=== PATIENT | female | born 1950 | race Caucasian/White ===

== ENCOUNTER 2020-01-06 23:01 | Emergency (ER) | payer MEDICARE, OTHER ==
[~2020-01-06] VITALS: Ht 172.7 cm; Wt 110.7 kg
[2020-01-06] MEDS ORDERED: Ropinirole HCl2 MG PO (23:17)
[2020-01-06] MEDS ORDERED: LEVEMIR100 UNIT/1 SC (23:17)
[2020-01-06] MEDS ORDERED: DULO60 PO (23:17)
[2020-01-06] MEDS ORDERED: METO50 PO (23:18)
[2020-01-06] MEDS ORDERED: METF500C PO (23:18)
[2020-01-06] MEDS ORDERED: LEVEMIR FL100 UNIT/2 SC (23:23)
== END 2020-01-07 | disposition home or self-care (01) ==
LOC: ER 23:01
DX: E11.9 Type 2 diabetes mellitus without complications (principal); Z76.0 Encounter for issue of repeat prescription; F17.200 Nicotine dependence, unspecified, uncomplicated
CPT/HCPCS: 82947; 99281

== ENCOUNTER 2020-02-18 02:32 | Emergency (ER) | payer MEDICARE, OTHER ==
[~2020-02-18] VITALS: Ht 172.7 cm; Wt 158.8 kg
[~2020-02-18 02:32] MED LIST: DULO60 PO; LEVEMIR FL100 UNIT/2 SC; LEVEMIR100 UNIT/1 SC; METF500C PO; METO50 PO; Ropinirole HCl2 MG PO
[2020-02-18 03:18] LABS: Source, Urine Catheter
[2020-02-18 03:22] LABS: Appearance, Urine Clear (Clear); Bilirubin, Urine Neg (Neg); Blood, Urine 4+ (Neg); Color, Urine Yellow (P-Yellow); Glucose Qualitative, Urine Neg (Neg); Ketones, Urine Neg (Neg); Leukocyte Esterase, Urine 1+ (Neg); Nitrite, Urine Neg (Neg); Protein, Urine 2+ (Neg); Urobilinogen, Urine 2+ (Normal)
[2020-02-18 03:23] LABS: BASOPHILS ABSOLUTE AUTO 0.03 K/mm3 (0.00-0.23); BASOPHILS PERCENT AUTO 0 % (0-2); EOSINOPHILS ABSOLUTE AUTO 0.04 K/mm3 (0.00-0.68); EOSINOPHILS PERCENT AUTO 0 % (0-6); Hematocrit 45.1 % (33.0-51.0); Hemoglobin 15.5 g/dL (11.5-16.0); IMMATURE GRAN ABSOLUTE AUTO 0.07 K/mm3 (0.00-0.10); IMMATURE GRAN PERCENT AUTO 1 % (0-1); LYMPHOCYTES ABSOLUTE AUTO 0.48 K/mm3 (0.84-5.20); LYMPHOCYTES PERCENT AUTO 5 % (21-46); MONOCYTES ABSOLUTE AUTO 0.52 K/mm3 (0.16-1.47); MONOCYTES PERCENT AUTO 5 % (4-13); Mean Corpuscular HGB 30.7 pg (26.0-34.0); Mean Corpuscular HGB Conc 34.4 g/dL (31.5-36.5); Mean Corpuscular Volume 89 fL (80-100); Mean Platelet Volume 10.3 fL (9.1-12.4); NEUTROPHILS ABSOLUTE AUTO 8.71 K/mm3 (1.96-9.15); NEUTROPHILS PERCENT AUTO 88 % (41-73); Platelet Count 91 K/mm3 (150-400); RDW Coefficient Variation 13.2 % (11.7-14.2); RDW Standard Deviation 42.9 fL (35.1-46.3); Red Blood Cell Count 5.05 M/mm3 (3.80-5.20); White Blood Cell Count 9.85 K/mm3 (4.00-11.30)
[2020-02-18 03:44] LABS: White Blood Cells, Urine 0-2 /hpf (0-5)
[2020-02-18 03:45] LABS: Bacteria Few /hpf; Squamous Epithelial Cells Few /hpf (Few)
[2020-02-18 03:48] LABS: Alanine Aminotransfer (ALT/SGP 34 U/L (12-78); Albumin/Globulin Ratio 0.6 (0.8-1.8); Alk Phos 108 U/L (50-136); Anion Gap 7 mmol/L (6-16); Aspartate Aminotrans (AST/SGOT 59 U/L (12-37); Bilirubin, Total 3.3 mg/dL (0.1-1.0); Blood Urea Nitrogen 15 mg/dL (8-24); Bun/Creatinine Ratio 30.1 (12.0-20.0); CO2, Blood 24 mmol/L (21-32); Calcium, Blood 8.7 mg/dL (8.5-10.1); Chloride, Blood 102 mmol/L (98-108); Glomerular Filtration Rate >60 (60-); Glucose, Blood 157 mg/dL (70-99); Magnesium, Blood 1.4 mg/dL (1.6-2.4); Potassium, Blood 3.9 mmol/L (3.5-5.5); Sodium, Blood 133 mmol/L (136-145); Troponin I <0.015 ng/mL (0.000-0.040)
== END 2020-02-18 06:29 | disposition home or self-care (01) ==
LOC: ER 02:32
PROVIDERS: Emergency Medicine
DX: R50.9 Fever, unspecified (principal); M54.5 Low back pain; E11.9 Type 2 diabetes mellitus without complications; I10 Essential (primary) hypertension; E83.42 Hypomagnesemia; F41.9 Anxiety disorder, unspecified; E86.0 Dehydration; Z79.899 Other long term (current) drug therapy; Z79.4 Long term (current) use of insulin; Z87.891 Personal history of nicotine dependence; Z20.828 Contact with and (suspected) exposure to other viral communicable diseases
CPT/HCPCS: 36415; 71045; 80053; 81001; 82947; 83605; 83690; 83735; 84145; 84484; 85025; 87040; 87077; 87086; 87147; 87186; 93005; 93010; 96361-59; 96365-59; 96375-59; 99284-25; G0480; J1170; J2405; J3475; J7030; P9612; U0003

== ENCOUNTER 2020-02-18 12:04 | Inpatient (IN) | payer MEDICARE, OTHER ==
[~2020-02-18] VITALS: Ht 172.7 cm; Wt 149.1 kg
[2020-02-18 12:54] LABS: Base Excess Venous -8.3 mmol/L; Bicarbonate Venous 19.3 mmol/L (24.0-30.0); PCO2 Venous 26.7 mmHg (38-42); PO2 Venous 138 mmHg (38-42)
[2020-02-18 12:57] LABS: BASOPHILS ABSOLUTE AUTO 0.06 K/mm3 (0.00-0.23); BASOPHILS PERCENT AUTO 0 % (0-2); EOSINOPHILS PERCENT AUTO 0 % (0-6); Hematocrit 45.9 % (33.0-51.0); Hemoglobin 15.5 g/dL (11.5-16.0); IMMATURE GRAN ABSOLUTE AUTO 0.22 K/mm3 (0.00-0.10); IMMATURE GRAN PERCENT AUTO 1 % (0-1); LYMPHOCYTES ABSOLUTE AUTO 0.46 K/mm3 (0.84-5.20); LYMPHOCYTES PERCENT AUTO 3 % (21-46); MONOCYTES ABSOLUTE AUTO 0.56 K/mm3 (0.16-1.47); MONOCYTES PERCENT AUTO 3 % (4-13); Mean Corpuscular HGB 30.5 pg (26.0-34.0); Mean Corpuscular HGB Conc 33.8 g/dL (31.5-36.5); Mean Corpuscular Volume 90 fL (80-100); Mean Platelet Volume 10.2 fL (9.1-12.4); NEUTROPHILS ABSOLUTE AUTO 15.18 K/mm3 (1.96-9.15); NEUTROPHILS PERCENT AUTO 92 % (41-73); Platelet Count 78 K/mm3 (150-400); RDW Coefficient Variation 13.4 % (11.7-14.2); RDW Standard Deviation 44.9 fL (35.1-46.3); Red Blood Cell Count 5.08 M/mm3 (3.80-5.20); White Blood Cell Count 16.48 K/mm3 (4.00-11.30)
[2020-02-18 13:15] LABS: Alanine Aminotransfer (ALT/SGP 37 U/L (12-78); Albumin, Blood 3.2 g/dL (3.4-5.0); Albumin/Globulin Ratio 0.7 (0.8-1.8); Alk Phos 106 U/L (50-136); Anion Gap 13 mmol/L (6-16); Aspartate Aminotrans (AST/SGOT 79 U/L (12-37); Bilirubin, Total 5.5 mg/dL (0.1-1.0); Blood Urea Nitrogen 20 mg/dL (8-24); Bun/Creatinine Ratio 34.4 (12.0-20.0); CO2, Blood 17 mmol/L (21-32); Calcium, Blood 8.9 mg/dL (8.5-10.1); Chloride, Blood 101 mmol/L (98-108); Creatinine, Blood 0.58 mg/dL (0.40-1.00); Globulin, Blood 4.8 g/dL (2.2-4.0); Glomerular Filtration Rate >60 (60-); Glucose, Blood 284 mg/dL (70-99); Potassium, Blood 4.2 mmol/L (3.5-5.5); Sodium, Blood 131 mmol/L (136-145)
[2020-02-18 13:27] LABS: U Amphetamine Screen Not Detected; U Cannabinoids Screen DETECTED
[2020-02-18 13:28] LABS: U Barbituate Screen Not Detected; U Benzodiazapine Screen Not Detected; U Buprenorphine Screen Not Detected; U Cocaine Screen Not Detected; U Methadone Screen Not Detected; U Methamphetamine Screen Not Detected; U Opiates Screen Not Detected; U Oxycodone Screen Not Detected; U Phencyclidine Screen Not Detected; U Propoxyphene Screen Not Detected
[2020-02-18 14:42] LABS: Creatine Kinase MB 5.2 ng/mL (0.0-3.6); Creatine Kinase MB Index 1.3 (0.0-4.0)
[2020-02-18 14:43] LABS: Free Thyroxine 1.26 ng/dL (0.70-1.60); Thyroid Stimulating Hormone 2.6 uIU/mL (0.360-4.800)
[2020-02-18 14:54] LABS: Acetaminophen, Random <2.0 ug/mL (10.0-30.0); Salicylate <1.7 mg/dL (2.8-20.0)
[2020-02-18 15:57] LABS: Adenovirus Not Detected (NOT DETECT); Bordetella pertussis Not Detected (NOT DETECT); Coronavirus 229E Not Detected (NOT DETECT); Coronavirus HKU1 Not Detected (NOT DETECT); Coronavirus NL63 Not Detected (NOT DETECT); Coronavirus OC43 Not Detected (NOT DETECT); Human Metapneumovirus Not Detected (NOT DETECT); Human Rhinovirus/Enterovirus Not Detected (NOT DETECT); Influenza A/2009-H1 Not Detected (NOT DETECT); Influenza A/H1 Not Detected (NOT DETECT); Influenza A/H3 Not Detected (NOT DETECT); Influenza B Not Detected (NOT DETECT); Parainfluenza Virus 1 Not Detected (NOT DETECT); Parainfluenza Virus 2 Not Detected (NOT DETECT); Parainfluenza Virus 3 Not Detected (NOT DETECT); Parainfluenza Virus 4 Not Detected (NOT DETECT); Respiratory Syncytial Virus Not Detected (NOT DETECT); SARS-Cov-2 (COVID-19), BioFire Not Detected (NOT DETECT)
[2020-02-18 15:58] LABS: Chlamydophila pneumoniae Not Detected (NOT DETECT); Mycoplasma pneumoniae Not Detected (NOT DETECT)
--- NOTE | 2020-02-18 18:13 | NUR ---
Assumed care of pt upon arrival from emergency department to ICU 11 at 1623. Pt sedated with propofol at 30 mcg/kg/min, dosing weight 100 kg. On arrival to unit, dosing weight changed to 124 kg as this is the pt's actual weight. Pt responsive to painful stimulus. 8.[address], 24 cm KATHLEEN. Connected to ventilator ACVC 16/375/5/60%. SpO2 90% or greater. Lungs clear, dim in bases. No sputum aspirated from ETT. ST per monitor. BP stable. Temp connors in place, draining orange urine. 2 peripheral IVs in left arm. Dressing removed and tegaderm CHG placed as previous dressings were having trouble adhering due to pt's diaphoresis. Orogastric tube in place, connected to low intermittent suction. Bilious drainage from OG tube. Pt in bilat wrist restraints to prevent self-extubation. Pt's spouse in to see pt but stayed in room only long enough to talk to Dr Alarcon. Dr Webster notified of consult. Provider states he will be in to see pt shortly. States to continue with propofol for sedation.
[2020-02-18 20:40] LABS: PCO2 Arterial 34.7 mmHg (35-45); PO2 Arterial 73.4 mmHg (80-100)
--- NOTE | 2020-02-18 21:39 | NUR ---
ASSUMED CARE OF PT, REPORT RCV'D FROM JASPER MICHEL. PT INTUBATED AND SEDATED. VENT SETTINS AC 16/375/5/45%. PROPOFOL @40 MCG/KG/MIN. PT DISPLAYS FACIAL GRIMACING AND WITHDRAWAL FROM PAINFUL STIMULI. PT FEBRILE 100.7, ALL OTHER VSS. SEE FULL SHIFT ASSESSMENT.
[2020-02-18 22:16] LABS: Source, Urine Catheter
[2020-02-18 22:19] LABS: Bilirubin, Urine 2+ (Neg); Blood, Urine 5+ (Neg); Glucose Qualitative, Urine 1+ (Neg); Ketones, Urine 1+ (Neg); Leukocyte Esterase, Urine 1+ (Neg); Nitrite, Urine Pos (Neg); Protein, Urine 3+ (Neg); Urobilinogen, Urine 3+ (Normal)
[2020-02-18 22:20] LABS: Appearance, Urine Cloudy (Clear); Color, Urine Amber (P-Yellow)
[2020-02-18 22:25] LABS: Amorphous Mod (0-Heavy); Bacteria Mod /hpf; Red Blood Cells, Urine TNTC /hpf (0-2); Squamous Epithelial Cells Few /hpf (Few)
--- NOTE | 2020-02-19 00:05 | NUR ---
PT IS HAVING INTERMITTENT MOTTLING OF HANDS AND FEET BILATERALLY. DIFFICULT TO OBTAIN ACCURATE 02 SATURATION READING.
[2020-02-19 03:18] LABS: BASOPHILS ABSOLUTE AUTO 0.02 K/mm3 (0.00-0.23); BASOPHILS PERCENT AUTO 0 % (0-2); EOSINOPHILS PERCENT AUTO 0 % (0-6); Hematocrit 40.6 % (33.0-51.0); Hemoglobin 13.4 g/dL (11.5-16.0); IMMATURE GRAN ABSOLUTE AUTO 0.07 K/mm3 (0.00-0.10); IMMATURE GRAN PERCENT AUTO 1 % (0-1); LYMPHOCYTES ABSOLUTE AUTO 0.41 K/mm3 (0.84-5.20); LYMPHOCYTES PERCENT AUTO 4 % (21-46); MONOCYTES ABSOLUTE AUTO 0.73 K/mm3 (0.16-1.47); MONOCYTES PERCENT AUTO 7 % (4-13); Mean Corpuscular HGB 30.5 pg (26.0-34.0); Mean Corpuscular Volume 93 fL (80-100); NEUTROPHILS ABSOLUTE AUTO 9.23 K/mm3 (1.96-9.15); NEUTROPHILS PERCENT AUTO 88 % (41-73); Platelet Count 71 K/mm3 (150-400); Red Blood Cell Count 4.39 M/mm3 (3.80-5.20); White Blood Cell Count 10.46 K/mm3 (4.00-11.30)
[2020-02-19 03:36] LABS: Alanine Aminotransfer (ALT/SGP 29 U/L (12-78); Albumin, Blood 3.4 g/dL (3.4-5.0); Albumin/Globulin Ratio 0.9 (0.8-1.8); Alk Phos 70 U/L (50-136); Anion Gap 8 mmol/L (6-16); Aspartate Aminotrans (AST/SGOT 73 U/L (12-37); Bilirubin, Direct 2.8 mg/dL (0.0-0.3); Bilirubin, Indirect 1.9 mg/dL (0.1-0.7); Bilirubin, Total 4.7 mg/dL (0.1-1.0); Blood Urea Nitrogen 27 mg/dL (8-24); Bun/Creatinine Ratio 28.8 (12.0-20.0); CO2, Blood 24 mmol/L (21-32); Calcium, Blood 8.4 mg/dL (8.5-10.1); Chloride, Blood 103 mmol/L (98-108); Creatinine, Blood 0.94 mg/dL (0.40-1.00); Globulin, Blood 3.6 g/dL (2.2-4.0); Glomerular Filtration Rate >60 (60-); Glucose, Blood 188 mg/dL (70-99); Phosphorus, Blood 2.6 mg/dL (2.5-4.9); Potassium, Blood 3.7 mmol/L (3.5-5.5); Sodium, Blood 135 mmol/L (136-145)
--- NOTE | 2020-02-19 05:22 | NUR ---
CALL TO DR. HARMAN REGARDING PT BLE MOTTLING AND COLD EXTREMETIES AND REQUEST TO COME ASSESS PATIENT. PT IS FEBRILE WITH CURRENT TEMP 101.4, ICE PACKED IN GROIN AND BEHIND NECK. PT RIGHT IBRAHIM REDDENED AND WARM TO THE TOUCH. DR. HARMAN TO ORDER TYLENOL FOR FEVER AND WILL SEE PATIENT WHEN AVAILABLE.
--- NOTE | 2020-02-19 05:44 | NUR ---
DR. HARMAN IN TO SEE PT. PT CURRENTLY DOES NOT HAVE MOTTLED FEET/HANDS, SHOWED DR. HARMAN PICTS TAKEN WHILE FEET WERE MOTTLED. PER DR. PT HAS GOOD PULSES BILATERALLY, SUGGESTS COVERING FEET WITH BLANKET TO KEEP WARM AND TREAT FEVER WITH TYLENOL. NO NEED FOR VASCULAR CONSULT AT THIS TIME.
--- NOTE | 2020-02-19 06:00 | NUR ---
PT REMAINS INTUBATED AND SEDATED. VENT SETTINGS AC 16/375/5/35%, PROPOFOL @45 MCG/KG/MIN. CURRENT TEMP 100.0, ICE PACKS REMAIN TO GROIN, NECK. 200 ML DARK GREEN OUTPUT FROM OGT. TEMP MELENDEZ REMAINS PATENT AND DRAINING TO GRAVITY, 450 ML DARK BROWN URINARY OUTPUT. PT CONTINUES TO HAVE EXTREME INTERMITTENT MOTTLING OF FEET, COLD EXTREMITIES UPPER/LOWER BILATERALLY. WILL REPORT TO DAYSINFT NURSE
--- NOTE | 2020-02-19 06:15 | NUR ---
PT CURRENTLY IN AFIB WITH RVR, HR UP TO 165. CALL TO DR. CROW, ORDER FOR 5MG/1ML LOADING DOSE DILTIAZEM AND DILTIAZEM GTT.
--- NOTE | 2020-02-19 08:30 | NUR ---
ASSUMED CARE: REPORT RECEIVED FROM PHUONG Winkler RN. ASSUMED CARE OF THIS PT AT APPROX 0700. ON ASSESSMENT, THE PT IS SEDATED W/ PROPOFOL & INTUBATED. SHE WITHDRAWS ALL EXTREMITIES & GRIMACES TO PAINFUL STIMULUS. PT IS STILL HAVING INTERMITTENT PERIODS OF DARK PUPLE COLORATION & MOTTLING TO BILAT FEET. HANDS ALSO BECOME VERY COLD TO THE TOUCH AT THESE TIMES. PT CONTINUES HAVING PULSES TO THE AFFECTED EXTREMITIES. ALL PROVIDERS AWARE. DR PADILLA & DR MCCORMICK, RESIDENT, HAVE BEEN AT BEDSIDE THIS AM. NO CHANGES AT THIS TIME, CONTINUE POC PER [employer]. WILL CONTINUE TO MONITOR & UPDATE NEEDED.
--- NOTE | 2020-02-19 08:50 | NUR ---
DR CROW: PROVIDER AT BEDSIDE TO EVAL PT. DISCUSSED PT's INTERMITTENT MOTTLING & COLD EXTREMITIES & NEW ONSET AFIB. HE STS HE WILL BE PLACING ORDERS FOR METOPROLOL PT & MORE ALBUMIN WELL. ONCE PT's HR IS IMPROVED, ECHO IS TO BE COMPLETED.
--- NOTE | 2020-02-19 14:26 | NUR ---
Echocardiogram completed.
--- NOTE | 2020-02-19 18:22 | NUR ---
SHIFT SUMMARY: PT REMAINS SEDATED W/ PROPOFOL & INTUBATED. BRIEF SEDATION VACATION COMPLETED THIS EVENING FROM APPROX [id number]. PT IS MOVING EXTREMITIES x4 SPONTANEOUSLY & WITHDRAWING FROM PAINFUL STIMULI, GRIMACES W/ CARE PROVIDED. PT SPONTANEOUSLY CONVERTED FROM AFIB TO SR AT 1645 W/ HR 50s. PT HYPOTENSIVE SHORTLY AFTER THIS CONVERSION, BP RESPONDED WELL TO SEDATION VACATION & OVERALL DECREASE IN SEDATION ONCE RESUMED. PT's HR NOW IN 60s & BP STABLE - SEE VS. OGT CONTINUES TO LIS W/ MOD AMNTS OF GREEN BILE OUT. TEMP MELENDEZ PATENT/ DRAINING & PT's TEMP OVERALL WNL THIS SHIFT. SKIN CONDITION UNCHANGED & PT HAS BEEN REPOSITIONED Q2H TO MAINTAIN SKIN INTEGRITY. WILL CONTINUE TO MONITOR & REPORT OFF TO ONCOMING RN.
--- NOTE | 2020-02-19 21:38 | NUR ---
ASSUMED CARE OF PT, REPORT RCV'D FROM JASPER CORCORAN. PT INTUBATED AND SEDATED. VENT SETTINGS AC 16/375/5/30%. PROPOFOL @ 40 MCG/KG/MIN. OGT TO LIS WITH GREEN/BROWN OUTPUT. MELNEDEZ CATH PATENT AND DRAINING DARK DENISSE URINE. BILATERAL FEET REMAIN INTERMITTENTLY MOTTLED, PULSE STRONG. DILTIAZEM GTT REMAINS OFF AND PT IN NSR. SEE FULL SHIFT ASSESSMENT.
[2020-02-20 03:33] LABS: BASOPHILS ABSOLUTE AUTO 0.02 K/mm3 (0.00-0.23); BASOPHILS PERCENT AUTO 0 % (0-2); EOSINOPHILS ABSOLUTE AUTO 0.05 K/mm3 (0.00-0.68); EOSINOPHILS PERCENT AUTO 1 % (0-6); Hematocrit 40.3 % (33.0-51.0); Hemoglobin 13.5 g/dL (11.5-16.0); IMMATURE GRAN ABSOLUTE AUTO 0.04 K/mm3 (0.00-0.10); IMMATURE GRAN PERCENT AUTO 1 % (0-1); LYMPHOCYTES ABSOLUTE AUTO 0.45 K/mm3 (0.84-5.20); LYMPHOCYTES PERCENT AUTO 6 % (21-46); MONOCYTES ABSOLUTE AUTO 0.71 K/mm3 (0.16-1.47); MONOCYTES PERCENT AUTO 10 % (4-13); Mean Corpuscular HGB 30.7 pg (26.0-34.0); Mean Corpuscular HGB Conc 33.5 g/dL (31.5-36.5); Mean Corpuscular Volume 92 fL (80-100); Mean Platelet Volume 10.6 fL (9.1-12.4); NEUTROPHILS ABSOLUTE AUTO 5.97 K/mm3 (1.96-9.15); NEUTROPHILS PERCENT AUTO 82 % (41-73); Platelet Count 72 K/mm3 (150-400); RDW Coefficient Variation 14.4 % (11.7-14.2); RDW Standard Deviation 48.6 fL (35.1-46.3); White Blood Cell Count 7.24 K/mm3 (4.00-11.30)
[2020-02-20 03:46] LABS: Albumin, Blood 3.1 g/dL (3.4-5.0); Anion Gap 10 mmol/L (6-16); Blood Urea Nitrogen 36 mg/dL (8-24); Bun/Creatinine Ratio 35.6 (12.0-20.0); CO2, Blood 19 mmol/L (21-32); Calcium, Blood 7.8 mg/dL (8.5-10.1); Chloride, Blood 106 mmol/L (98-108); Creatinine, Blood 1.01 mg/dL (0.40-1.00); Glomerular Filtration Rate 58 (60-); Glucose, Blood 191 mg/dL (70-99); Phosphorus, Blood 3.2 mg/dL (2.5-4.9); Sodium, Blood 135 mmol/L (136-145)
--- NOTE | 2020-02-20 05:53 | NUR ---
SHIFT SUMMARY PT REMAINS INTUBATED AND SEDATED. VENT AND SEDATION SETTING REMAIN UNCHANGED. PT STABLE OVERNIGHT WITH NO ACUTE CHANGES. PT FAILED SBT/SEDATION VACATION THIS AM PT FAILED TO FOLLOW COMMANDS AND BECAME HYPERTENSIVE. WILL REPORT TO DAYSHIFT NURSE.
--- NOTE | 2020-02-20 09:04 | NUR ---
CARE ASSUMED 0700 PT INTUBATED AND SEDATED. AC 16/375/5/25%. PROPOFOL @ 40 MCG'S, RESPONDING TO PAINFUL STIMULI WITH GRIMACING. MAINTAINS FLUIDS AT 125 ML/HR. OG TUBE TO LIS WITH GREEN BILE. PT IN NSR WITH OCCASIONAL PAC'S. VSS. DR. CROW AND DR. MCCORMICK IN TO SEE PT. PROVIDERS MADE AWARE OF PTS LACTIC ACID @ 2.4. ORDERS FOR CHANGING ANTIBIOTICS, CHECKING AMMONIA LEVEL, AND DIETARY CONSULTED FOR STARTED TUBE FEEDS. PROPOFOL DECREASED TO 35 MCG'S FOR POSSIBLE SEDATION VACTION. PTS DAUGHTER CALLED BUT SHE IS NOT LISTED ON CONSENT RELEASE FORM THEREFORE, COULD NOT PROVIDE ANY INFORMATION. DAUGHTER STATES THAT HER STEP-FATHER WILL BE ADDING HER TO THE FORM SOON.
--- NOTE | 2020-02-20 14:15 | NUR ---
UPDATE PROPOFOL STOPPED AND PRECEDEX @ 0.3 MCG/KG/HR. AC SETTINGS CHANGED TO PS 7/5, 25%. PT OCCASIONALLY TRIES TO SIT-UP IN BED, MOSTLY SLEEPING, AND STILL NOT ABLE TO FOLLOW COMMANDS. PLAN TO CONTINUE SEDATION VACATION TOLERATED.
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
--- NOTE | 2020-02-20 18:25 | NUR ---
SHIFT SUMMARY SEE PREVIOUS NOTES. PT CONTINUED ON PS 7/5,25%, TOLERATING WELL SPO2 94%. SEDATION VACATION DONE FOR TWO HOURS BUT PT DID NOT TOLERATE WELL. PT WAS NOT A/O OR FOLLOWING COMMANDS. HAD INCREASED GRIMACING/AGITATION. PROPOFOL STARTED AT 20MCG/KG/MIN AND PRECEDEX AT 0.2 MCG/KG/HR. TOLERATING WELL. VSS. NSR. PT WAS DIAPHORETIC FOR TWO HOURS WHEN TEMP ELEVATED TO 99.3 BUT HAS IMPROVED IN DIAPHORESIS AND TEMP DECREASED TO 97.8. MELENDEZ CATH IN PLACE WITH DARK CLOUDY URINE WITH SEDIMENT. OG TUBE WITH PIVOT 1.5 TUBE FEED, RESIDUAL OF 60 ML AND GOAL OF 35 ML/HR MET. PER DR. CROW PLAN TO SWITCH PT BACK TO AC MODE DURING SHIFT CHANGE. WILL REPORT TO ONCOMING SHIFT.
--- NOTE | 2020-02-20 20:17 | NUR ---
ASSUMED CARE OF PT, REPORT RCV'D FROM JASPER BUSTAMANTE AND JASPER MARINO. PT INTUBATED AND SEDATED. PT SWITCHED FROM PS BACK TO AC PER PHYSICIAN ORDER, PT BEGINS "BREATH STACKING", RT TO ROOM, DISCUSSION WITH DR. CROW TO CONTINUE PT ON PS LONG SHE TOLERATED IT. PT UNRESPONSIVE TO PAIN (STERNAL RUB) AT THIS TIME. DECREASED PROPFOL FROM 20 MCG/KG/MIN TO 15 MCG/KG/MIN, WILL CONTINUE TO ASSESS CHANGE IN NEURO STATUS. PUPILS 4 MM, SLUGGISH. PRECEDEX @ 0.2 MCG/KG/HR. PT AFEBRILE AT THIS TIME. ALL OTHER VSS. SEE FULL SHIFT ASSESSMENT
--- NOTE | 2020-02-21 00:07 | NUR ---
REDUCED SEDATION TO CONTINUE TO MONITOR PT NEURO STATUS. PROPOFOL @10 MCG/KG/MIN FOR 2 HRS, PRECEDEX @ 0.7 MCG/KG/HR. PT LIFTING HEAD OFF PILLOW, COUGHING DOES NOT SPONTANEOUSLY OPEN EYES, FAILS TO FOLLOW COMMANDS, MINIMALLY RESPONSIVE TO AGGRESSIVE PAINFUL STIMULI. PT MAINTAINS SATS BUT BECOMES HYPERTENSIVE WITH LESSENED SEDATION. PROPOFOL CURRENTLY AT 15MCG/KG/MIN, PRECEDEX @ 0.6 MCG/KG/HR
[2020-02-21 04:16] LABS: BASOPHILS ABSOLUTE AUTO 0.03 K/mm3 (0.00-0.23); BASOPHILS PERCENT AUTO 1 % (0-2); EOSINOPHILS ABSOLUTE AUTO 0.16 K/mm3 (0.00-0.68); EOSINOPHILS PERCENT AUTO 3 % (0-6); Hematocrit 39.5 % (33.0-51.0); Hemoglobin 13.6 g/dL (11.5-16.0); IMMATURE GRAN ABSOLUTE AUTO 0.04 K/mm3 (0.00-0.10); IMMATURE GRAN PERCENT AUTO 1 % (0-1); LYMPHOCYTES ABSOLUTE AUTO 0.39 K/mm3 (0.84-5.20); LYMPHOCYTES PERCENT AUTO 7 % (21-46); MONOCYTES ABSOLUTE AUTO 0.53 K/mm3 (0.16-1.47); MONOCYTES PERCENT AUTO 10 % (4-13); Mean Corpuscular HGB 31.3 pg (26.0-34.0); Mean Corpuscular HGB Conc 34.4 g/dL (31.5-36.5); Mean Corpuscular Volume 91 fL (80-100); Mean Platelet Volume 10.4 fL (9.1-12.4); NEUTROPHILS ABSOLUTE AUTO 4.22 K/mm3 (1.96-9.15); NEUTROPHILS PERCENT AUTO 79 % (41-73); Platelet Count 74 K/mm3 (150-400); RDW Coefficient Variation 14.4 % (11.7-14.2); RDW Standard Deviation 48.5 fL (35.1-46.3); Red Blood Cell Count 4.35 M/mm3 (3.80-5.20); White Blood Cell Count 5.37 K/mm3 (4.00-11.30)
[2020-02-21 04:30] LABS: Albumin, Blood 3.5 g/dL (3.4-5.0); Anion Gap 8 mmol/L (6-16); Blood Urea Nitrogen 40 mg/dL (8-24); Bun/Creatinine Ratio 48.5 (12.0-20.0); CO2, Blood 21 mmol/L (21-32); Calcium, Blood 8.4 mg/dL (8.5-10.1); Chloride, Blood 108 mmol/L (98-108); Creatinine, Blood 0.82 mg/dL (0.40-1.00); Glomerular Filtration Rate >60 (60-); Glucose, Blood 307 mg/dL (70-99); Magnesium, Blood 2.2 mg/dL (1.6-2.4); Potassium, Blood 3.9 mmol/L (3.5-5.5); Sodium, Blood 137 mmol/L (136-145)
--- NOTE | 2020-02-21 05:53 | NUR ---
SHIFT SUMMARY PT REMAINS ON PS 7/5 27%, SATS MAINTAINED>90%. PROPOFOL @15 MCG/KG/MIN, PRECEDEX 0.7 MCG/KG/HR. PT REMAINS MINIMALLY RESPONSIVE TO PAINFUL STIMULI, NO PURPOSEFUL MOVEMENT NOTED, FAILS TO FOLLOW COMMANDS. PT DISPLAYS INCREASED COUGHING/GAG AND BECOMES HYPERTENSIVE WHEN SEDATION REDUCED. TEMPERATURE LABILE, CURRENT TEMP 99.1. SEE PREVIOUS NOTES FROM THIS SHIFT. WILL REPORT TO DAYSHIFT NURSE.
--- NOTE | 2020-02-21 10:18 | NUR ---
CARE ASSUMED 0700 PT INTUBATED AND SEDATED. PS 7/5, 27%, SPO2 93%. NSR. PROPOFOL AT 15 MCG/KG/MIN AND PRECEDEX 0.5 MCG/KG/HR. NOT RESPONDING TO PAINFUL STIMULI BUT MOVES LOWER EXTREMS OCCASIONALLY. VSS. OG TUBE IN PLACE WITH TUBE FEED @ GOAL RATE OF 30 ML/HR. 225 RESIDUAL REINSTALLED THIS MORNING. MELENDEZ CATH IN PLACE WITH DARK DENISSE CLOUDY URINE. DR. CROW IN TO SEE PT AND ONE TIME DOSE OF LASIX ORDERED. PLAN TO REDUCE SEDATION AND POSSIBLY EXTUBATE LATER TODAY. AT BEDSIDE AND SPOKE TO DAUGHTER VIA PHONE. FAMILY UPDATED AND ALL QUESTIONS ANSWERED.
--- NOTE | 2020-02-21 13:28 | NUR ---
EXTUBATED AT 1124 PT SUCCESSFULLY EXTUBATED AT 1124. PROPOFOL WAS STOPPED AND PRECEDEX @ 0.3 MCG/KG/HR. PT BECAME INCREASINGLY RESTLESS AND AGITATED . STILL UNABLE TO FOLLOW COMMANDS AND UNABLE TO REDIRECT. PT HAD INCREASED WORK OF BREATHING WITH ACCESSORY MUSCLE USE AND UNABLE TO CLEAR SECRETION'S. DR. CROW CALLED TO ROOM AND AT 1152 PT PLACED ON BIPAP. PT CONTINUES TO PULL AT LINES/TUBES AND UNABLE TO REDIRECT WITH INCREASED AGITATION AND WORK OF BREATHING. PT GIVEN HALDOL. BIPAP 03/01, BACK UP RATE OF 12, FIO2 40%. AT BEDSIDE AND UPDATED ON REASON FOR RESTRAINTS AND PTS CONDITION.
--- NOTE | 2020-02-21 18:39 | NUR ---
SHIFT SUMMARY PT CONTINUES TO BE ON BIPAP 03/01, 35%, SPO2 92-96%. NO IMPROVEMENT IN MENTAL STATUS SINCE PREVIOUS NOTE. CONTINUES TO BE EASILY AGITATED AND PULLING AT LINES/TUBES OCCASIONALLY. NG TUBE INSERTED AND TOLERATED WELL. AIR BUBBLES AUSCULTATED WHEN AIR INFUSED USING SYRINGE. PT REMAINS ON PRECEDEX 0.7 MCG/KG/HR, PER DR. CROW PRECEDEX CAN BE TITRATED UP TO 1.4 MCG/KG/HR. SBP RANGED FROM SBP 150-180 WHEN PT AGITATED DURING NG TUBE INSERTION. TITRATED PRECEDEX TO HELP WITH AGITATION/ALERTED MENTAL STATUS. PT CURRENTLY RESTING/SLEEPING. PTS BLOOD GLUCOSE ELEVATED TO [address] CROW AWARE. ASKED TO TREAT PER EMAR. WILL REPORT TO ONCOMING SHIFT.
--- NOTE | 2020-02-22 01:39 | NUR ---
ASSUMED CARE AT 1900 PT LAYING IN BED WITH BIPAP AT 14/8 AND FIO2 OF 35%. PROPOFOL INFUSING AT 0.7MCG/KG/HR. NG INPLACE AND CLAMPED. BP 182/100, DR CROW ON SITE AND NOTIFIED. NEW ORDERS PROVIDED. SBW RESTRAINTS IN PLACE. MELENDEZ PATENT AND DRAINING TO GRAVITY. SEE SHIFT ASSESSMENT FOR FULL ASSESSMENT.
[2020-02-22 04:15] LABS: BASOPHILS ABSOLUTE AUTO 0.03 K/mm3 (0.00-0.23); BASOPHILS PERCENT AUTO 1 % (0-2); EOSINOPHILS ABSOLUTE AUTO 0.18 K/mm3 (0.00-0.68); EOSINOPHILS PERCENT AUTO 4 % (0-6); Hemoglobin 13.4 g/dL (11.5-16.0); IMMATURE GRAN ABSOLUTE AUTO 0.04 K/mm3 (0.00-0.10); IMMATURE GRAN PERCENT AUTO 1 % (0-1); LYMPHOCYTES ABSOLUTE AUTO 0.42 K/mm3 (0.84-5.20); LYMPHOCYTES PERCENT AUTO 9 % (21-46); MONOCYTES ABSOLUTE AUTO 0.52 K/mm3 (0.16-1.47); MONOCYTES PERCENT AUTO 11 % (4-13); Mean Corpuscular HGB Conc 32.7 g/dL (31.5-36.5); Mean Corpuscular Volume 92 fL (80-100); Mean Platelet Volume 10.3 fL (9.1-12.4); NEUTROPHILS ABSOLUTE AUTO 3.53 K/mm3 (1.96-9.15); NEUTROPHILS PERCENT AUTO 75 % (41-73); Platelet Count 74 K/mm3 (150-400); RDW Coefficient Variation 14.4 % (11.7-14.2); RDW Standard Deviation 48.8 fL (35.1-46.3); Red Blood Cell Count 4.46 M/mm3 (3.80-5.20); White Blood Cell Count 4.72 K/mm3 (4.00-11.30)
[2020-02-22 04:30] LABS: Anion Gap 8 mmol/L (6-16); Blood Urea Nitrogen 38 mg/dL (8-24); CO2, Blood 23 mmol/L (21-32); Calcium, Blood 8.9 mg/dL (8.5-10.1); Chloride, Blood 111 mmol/L (98-108); Creatinine, Blood 0.72 mg/dL (0.40-1.00); Glomerular Filtration Rate >60 (60-); Glucose, Blood 348 mg/dL (70-99); Magnesium, Blood 2.1 mg/dL (1.6-2.4); Phosphorus, Blood 2.6 mg/dL (2.5-4.9); Potassium, Blood 3.4 mmol/L (3.5-5.5); Sodium, Blood 142 mmol/L (136-145)
--- NOTE | 2020-02-22 06:32 | NUR ---
END OF SHIFT SUMMARY PT HAD INTERMITTENT EPISODES OF AGITATION. PRN HALDOL X2. AGITATION DECREASED IN FREQUENCY AND DURATION T/O THE NIGHT. TUBE FEED STARTED AT 10ML/HR WITH 30ML WATER FLUSH Q4HRS. GLOCUOSE CONTINUES TO BE ELIVATED. PT CONT TO NOT FOLLOW DIRECTIONS. BIPAP SET AT 14/8 WITH FIO2 35%. PRECEDEX INFUSING, SEE FLOW SHEET. MELENDEZ PATENT AND DRAINING TO GRAVITY. WILL REPORT TO AM RN WHEN AVAILABLE.
--- NOTE | 2020-02-22 07:00 | NUR ---
CARE ASSUMED 0700 PT ON BIPAP 03/01, FIO2 25%, SPO2 90-95%. NOT RESPONDING TO VERBAL STIMULI AND GRIMACE DURING NOXIOUS STIMULI. DURING START OF SHIFT PRECEDEX AT 1.3 MCG/KG/HR. DECREASED TO 1 MCG/KG/HR SOON AFTER, SEE FLOW SHEET. PER NOC SHIFT RN PT CONTINUES TO BE EASILY AGITATED AND PULLING AT LINES/RESTRAINT'S. SWB. SBP 150'S AND HR 60-70'S. NG TUBE SECURED IN PLACE WITH PIVOT 1.5 FEED AT GOAL RATE OF 10 ML/HR WITH 30ML FLUSH Q4. MELENDEZ PATENT AND DRAINING TO GRAVITY WITH DARK CLOUDY DENISSE COLORED URINE. PT HAS POWERGLIDE TO RIGHT UPPER ARM AND NO OTHER ACCESS. PLAN TO OBTAIN SECOND IV. AT SHIFT CHANGE TEMP OF 98.7. PLAN TO TITRATE PRECEDEX DOWN FOR FURTHER EVALUATION. DR. PADILLA IN TO SEE PT. NO NEW ORDERS RECEIVED. DR. MCCORMICK IN TO SEE PT AND STATES SHE WILL BE STARTING PT ON KCL (K 3.4).
--- NOTE | 2020-02-22 11:00 | NUR ---
UPDATE SEDATION VACATION STARTED AT 1000, PRECEDEX ON STANDBY AND BIPAP REMOVED. PT HAS INCREASED AGITATION AND SPO2 >90% WITH BP SLOWING INCREASING. WHEN ASKED BY RN NED IF PT COULD HEAR US, PT NODS NO. WHEN ASKED FURTHER QUESTIONS SHE CONTINUES TO NOD NO. INCREASED AGITATION WITH ELEVATED BP AND DECREASED SPO2. PRECEDEX RESTARTED, SEE FLOW SHEET. BIPAP RESTARTED. PT RECEIVED HALDOL 2.5 MG/ML FOR INCREASED AGITATION. DR. LAM IN TO SEE PT. NEW ORDERS FOR MEDICATION, SEE EMAR.
--- NOTE | 2020-02-22 19:20 | NUR ---
SHIFT SUMMARY: PT CONTINUES TO BE ON BIPAP, 03/01, 25%. PRECEDEX @ 1.4 MCG/KG/HR. PRECEDEX DECREASED TO 0.5 MCG/KG/MIN AND BIPAP REMOVED TO DETERMINE PTS MENTAL STATUS AT 1600. PT WAS ABLE TO ANSWER QUESTIONS BY NODDING YES/NO, ASKED FOR WATER, AND HER , SOLIS. PT BECAME AGITATION/ PULLING AT LINES/TUBES/CORDS WHEN TOLD THAT HER HAD GONE HOME FOR THE DAY. INCREASED AGITATION, BP INCREASED, AND SPO2 DECREASED. PT RECEIVED HALDOL AND PRECEDEX TITRATED TO HELP STABILIZE PT. VSS STABLE T/O SHIFT EXCEPT WHEN TRYING TO DO SEDATION VACATION. PTS TEMP INCREASED TO 100.2 (APPEARS TO INCREASE WHEN AGITATED), GIVEN ICE PACKS WHICH DECREASED TEMP TO 99.9. PT HAD LARGE LOOSE BM AT END OF SHIFT. TEMP MELENDEZ CATH IN PLACE WITH 425 URINE OUTPUT, DR. LAM AWARE. WILL REPORT TO ONCOMING SHIFT. AT BEDSIDE T/O THE DAY AND ALL QUESTIONS ANSWERED.
--- NOTE | 2020-02-22 21:00 | NUR ---
ASSUMPTION OF CARE PT RESTING IN BED, MILD AGITATION/RESTLESSNESS NOTED, PT DOES NOT RESPOND TO VERBAL STIMULI, PRECEDEX INFUSING @ 1.4, SEE FLOWSHEET FOR RATES AND TITRATIONS. BIPAP IN PLACE, PT TOLERATING WELL. MONITOR SHOWS SINUS RHYTHM WITH HR 60'S, HYPERTENSIVE, SCHEDULED BP MEDS ADMINISTERED PER NGT. EXTREMETIES COOL TO THE TOUCH. BT HYPERACTIVE. MELENDEZ IN PLACE DRAINING DARK YELLOW TO ORANGE URINE. PT MOVES ALL EXTREMETIES, NOT FOLLOWING COMMANDS AT THIS TIME.
[2020-02-22 21:13] LABS: Source, Urine Catheter
[2020-02-22 21:23] LABS: Appearance, Urine Hazy (Clear); Blood, Urine 5+ (Neg); Color, Urine Amber (P-Yellow); Glucose Qualitative, Urine Neg (Neg); Ketones, Urine 1+ (Neg); Leukocyte Esterase, Urine 2+ (Neg); Nitrite, Urine Pos (Neg); Protein, Urine 3+ (Neg); Specific Gravity, Urine 1.015 (1.003-1.022); Urobilinogen, Urine 4+ (Normal)
[2020-02-22 21:35] LABS: Bilirubin, Urine 2+ (Neg)
[2020-02-22 21:36] LABS: Red Blood Cells, Urine 50-100 /hpf (0-2)
[2020-02-22 21:37] LABS: Bacteria Few /hpf; Squamous Epithelial Cells Rare /hpf (Few)
--- NOTE | 2020-02-23 01:46 | NUR ---
PT MOANING/YELLING, TO PTS ROOM, PT REQUESTING WATER. ALLOWED BREAK FROM BIPAP ON 5L PER NC, PT TOLERATED WELL. PT ORIENTED TO SELF AND FOLLOWING DIRECTIONS. ASKED PT TO COUGH, PT APPEARS TO ATTEMPT COUGH, BUT UNABLE TO DO SO. EXPLAINED TO PT NPO STATUS UNTIL SHE GAINS STRENGTH AND HAS A STRONGER COUGH, PT THEN ATTEMPTS COUGHING AGAIN, PT ABLE TO COUGH BUT IS VERY WEAK. ORAL CARE PROVIDED, MUCOUS MEMBRANES EXTREMELY DRY, ORAL MOISTURIZER APPLIED.
[2020-02-23 05:01] LABS: Base Excess Venous -1.5 mmol/L; PCO2 Venous 35.8 mmHg (38-42); PO2 Venous 38.6 mmHg (38-42); pH Blood Venous 7.42 (7.34-7.37)
[2020-02-23 05:19] LABS: BASOPHILS ABSOLUTE AUTO 0.03 K/mm3 (0.00-0.23); BASOPHILS PERCENT AUTO 1 % (0-2); EOSINOPHILS ABSOLUTE AUTO 0.14 K/mm3 (0.00-0.68); EOSINOPHILS PERCENT AUTO 2 % (0-6); Hematocrit 39.3 % (33.0-51.0); IMMATURE GRAN ABSOLUTE AUTO 0.05 K/mm3 (0.00-0.10); IMMATURE GRAN PERCENT AUTO 1 % (0-1); LYMPHOCYTES ABSOLUTE AUTO 0.48 K/mm3 (0.84-5.20); LYMPHOCYTES PERCENT AUTO 8 % (21-46); MONOCYTES ABSOLUTE AUTO 0.63 K/mm3 (0.16-1.47); MONOCYTES PERCENT AUTO 11 % (4-13); Mean Corpuscular HGB 30.4 pg (26.0-34.0); Mean Corpuscular HGB Conc 33.1 g/dL (31.5-36.5); Mean Corpuscular Volume 92 fL (80-100); Mean Platelet Volume 10.5 fL (9.1-12.4); NEUTROPHILS ABSOLUTE AUTO 4.51 K/mm3 (1.96-9.15); NEUTROPHILS PERCENT AUTO 77 % (41-73); Platelet Count 78 K/mm3 (150-400); RDW Coefficient Variation 14.6 % (11.7-14.2); RDW Standard Deviation 49.2 fL (35.1-46.3); Red Blood Cell Count 4.27 M/mm3 (3.80-5.20); White Blood Cell Count 5.84 K/mm3 (4.00-11.30)
[2020-02-23 05:32] LABS: International Normalized Ratio 1.14; Prothrombin Time Results 12.1 Sec (9.7-11.5)
[2020-02-23 05:37] LABS: Alanine Aminotransfer (ALT/SGP 36 U/L (12-78); Albumin, Blood 3.7 g/dL (3.4-5.0); Albumin/Globulin Ratio 1.1 (0.8-1.8); Alk Phos 58 U/L (50-136); Anion Gap 10 mmol/L (6-16); Aspartate Aminotrans (AST/SGOT 70 U/L (12-37); Bilirubin, Total 4.5 mg/dL (0.1-1.0); Blood Urea Nitrogen 33 mg/dL (8-24); Bun/Creatinine Ratio 46.5 (12.0-20.0); CO2, Blood 23 mmol/L (21-32); Calcium, Blood 8.9 mg/dL (8.5-10.1); Chloride, Blood 113 mmol/L (98-108); Creatinine, Blood 0.71 mg/dL (0.40-1.00); Globulin, Blood 3.3 g/dL (2.2-4.0); Glomerular Filtration Rate >60 (60-); Glucose, Blood 308 mg/dL (70-99); Magnesium, Blood 1.8 mg/dL (1.6-2.4); Potassium, Blood 2.5 mmol/L (3.5-5.5); Sodium, Blood 146 mmol/L (136-145)
--- NOTE | 2020-02-23 07:22 | NUR ---
SHIFT SUMMARY PT CONTINUES TO HAVE PERIODS OF RESTLESS T/O NIGHT HOWEVER PRECEDEX WAS ABLE TO BE TITRATED DOWN TO 0.5, PT MEDICATED WITH HALDOL x1, ZYPREXA x1 AND FENTANYL FOR PAIN MANAGEMENT. PT ANSWERS SOME YES/NO QUESTIONS, ABLE TO SAY "YES" TO PAIN, BUT UNABLE TO IDENTIFY LOCATION OF PAIN. PT TOLERATED EXTENDED BREAKS FROM BIPAP ON 5L PER NC FOR ORAL CARE. MONITOR SHOWS SINUS RHYTHM WITH HR 60'S, HYPERTENSION CONTINUES. MELENDEZ REMAINS IN PLACE DRAINING ORANGE URINE, APPROX 2L OUT THIS SHIFT. AM LABS SHOWED LOW POTASSIUM AND PHOSPHOROUS, DICUSSED WITH DR FREED, SEE NEW ORDER FOR KPHOS AND FOLLOW UP LABS. REPORT GIVEN TO MARILU HUTCHINSON.
--- NOTE | 2020-02-23 08:59 | NUR ---
TRANSFER OF CARE Assumed care of pt at 0700. Bedside report received from Margot HUTCHINSON. Precedex at 0.5 mcg/kg/hr. Pt on BiPAP. BiPAP removed and pt placed on 2 LPM NC. SpO2 90% or greater. Lungs clear and dimnished throughout. Pt has loose, moist, but nonproductive cough. Pt alert. Answers name and location correctly. States she would like something to drink, although speech is consistently garbled and difficult to discern. Educated that drinking is not a safe choice at this time but an appropirate goal to set for the day. Pt has NG tube with continuous feeds. Pt in bilateral soft wrist restraints for safety, to prevent self-removal of NG tube with fragile respiratory status, however will continue to assess need for restraints as day progresses. Pt calling out, but redirectable. SR per monitor, BP stable. Dr Cooney has been in to see pt, no new orders given. At this time, care of this patient is being transferred from this RN to Emma HUTCHINSON.
--- NOTE | 2020-02-23 10:30 | NUR ---
ASSUMED CARE ASSUMED CARE AT 0900, PT AGITATED, CALLING OUT, ASKING REPEATEDLY FOR WATER AND FOOD, SAYS "HELP ME" BUT DOES NOT IDENTIFY OTHER NEEDS. HALDOL ADMINISTERED PER ORDERS, PRECEDEX DOSE INCREASED TO 0.7MCG. LS COARSE WITH EXPIRATORY WHEEZES, PT ON 2L/NC WITH SPO2 MID 90'S, LOOSE COUGH WITH SPUTUM PRODUCTION, THIS RN ASSISTING PT WITH ORAL SUCTION OF BROWN SPUTUM. HRR, BP ELEVATED. PT CONTINUED TO BE DISRUPTIVE AND ANXIOUS AFTER HALDOL, ZYPREXA ADMINISTERED PER ORDERS. BP DECREASED, PT THEN FELL ASLEEP. SPO2 REMAINS >90%, RESPIRATIONS SHALLOW AND SLIGHTLY TACHYPNEIC.
[2020-02-23 13:11] LABS: Phosphorus, Blood 3.5 mg/dL (2.5-4.9); Potassium, Blood 3.2 mmol/L (3.5-5.5)
[2020-02-23 13:44] LABS: PCO2 Arterial 41.9 mmHg (35-45); PO2 Arterial 202 mmHg (80-100); pH Blood Arterial 7.33 (7.35-7.45)
--- NOTE | 2020-02-23 15:29 | NUR ---
1230 UPDATE PT BECAME AGITATED LATER IN THE MORNING, STATES "I CAN'T BREATHE," SPO2 88%. BIPAP REPLACED AT 14/8, FIO2 25%, PT THEN RESTED WITH SPO2 >95%. ATTEMPTED TO ADMINISTER MIDDAY MEDS VIA NGT, TUBE HAD BECOME DISLODGED AND PT ASPIRATED DURING MED ADMINISTRATION, SPO2 DECREASED TO 68%, , RT, AND NURSING STAFF AT BEDSIDE. LS WITH COARSE RHONCHI, PT BAGGED BEGINNING AT 1215, SPO2 INCREASED TO 90'S. ETOMIDATE 20MG ADMINISTERED PER DR. LAM, PT INTUBATED WITH 8.0 TUBE, POSITIVE COLOR CHANGE NOTED ON CO2 DETECTOR. LS PRESENT ON R, NOT ON LEFT, TUBE ADJUSTED UNTIL LS PRESENT IN ALL HOOPER. ETT 25CM AT LIP AFTER ADJUSTMENT. INTUBATION COMPLETED AT 1222, VENT SETTINGS PER DR. LAM AC 15, Vt 450, FIO2 100%, PEEP 5. SPO2 >95%, BP WNL, HR 60'S, RR 20. PROPOFOL INFUSION INITIATED, TITRATED TO EFFECT. ICE PACKS PLACED TO UNDER ARMS FOR FEVER, NO TYLENOL PER DR. LAM D/T HEPATIC ISSUES, WILL CONTINUE TO MONITOR. LS REMAIN COARSE T/O, SUCTIONING ETT NEEDED. PT HAD LARGE BM, ATTENDS CHANGED. ABX INFUSING PER ORDERS, PROPOFOL DECREASED FOR HYPOTENSION, PRECEDEX DC'D, BP IMPROVED TO WNL.
--- NOTE | 2020-02-23 15:37 | NUR ---
3361 SPOUSE UPDATE PT'S AT BEDSIDE, AWARE OF SITUATION AND HAS SPOKEN WITH BOTH THIS RN AND DR. LAM.
--- NOTE | 2020-02-23 19:33 | NUR ---
END OF SHIFT PT REMAINED INTUBATED AND SEDATED THROUGH SHIFT, PROPOFOL TITRATED TO EFFECT. PT DOUBLE STACKING BREATHS DESPITE SEDATION AND FENTANYL, MAINTAINING SATS. BROWN SECRETIONS FROM ETT REMAIN PRESENT, LS COARSE WITH EXP WHEZES. PT'S COLORING HAS IMPROVED SINCE INTUBATION. HR SINUS/SBR THIS SHIFT UNTIL SHIFT CHANGE WHEN PT CONVERTED TO AFIB 110-120'S, THEN QUICKLY INTO VT RATE >200, PULSE PRESENT T/O EPISODE. DR LAM, NURSING STAFF, AND RT IMMEDIATELY AT BEDSIDE, PT SHOCKED, AMIO AND MAGNESIUM ADMINISTERED, SEE FLOW SHEET. PT CONVERTED TO AFIB RATE 110-120'S, CONFIRMED WITH EKG. AMIO GTT ORDERED. REPORT TO ONCOMING SHIFT, PT'S AT BEDSIDE RECEIVING UPDATE FROM DR. LAM.
[2020-02-23 19:35] LABS: Magnesium, Blood 1.7 mg/dL (1.6-2.4); Potassium, Blood 3.8 mmol/L (3.5-5.5)
--- NOTE | 2020-02-23 20:34 | NUR ---
ASSUMED CARE RECEIVED REPORT FROM AUDRA, AFTER PT HAD HER VTACH EPISODE. PT CURRENTLY IN AFIB RATE 120-150, STABLE BP. PROPOFOL INFUSING AT 25 MCG/KG/MIN, NS WITH AMPICILLIN INFUSING, AND AMIOADARONE INFUSING AT 1 MG/MIN. PT IS COARSE THROUGHOUT LUNG HOOPER, AND DIMINISHED IN BASES. SHE IS COOL TO TOUCH, AND HER SPO2 PROBE IS GETTING POOR PLETH ON THE FINGER OR EAR, CURRENTLY GETTING A GOOD WAVEFORM AND GOOD BIOX (9$%+) IN THE NOSE. HER HANDS AND FEET ARE DUSKY. GENARO AWARE. VENT IS AT AC 15/450/5/70%. FIO2 WAS TURNED UP FROM 50% TO 100% AT TIME OF INCIDENT. SHE HAS SINCE BEEN TITRATED DOWN TO 70%. PIVOT 1.5 IS INFUSING VIA OG TUBE AT 20 ML/HR. SHE HAS A PATENT TEMP MELENDEZ CATH DRAINING YELLOW URINE. PT IS NOT RESPONDING TO NOXIOUS STIMULI. EYES ARE HALF OPEN, BUT NOT MOVING. SHE IS OCCASSIONALLY MOVING HER ARMS SLIGHTLY, BUT NOT PURPOSEFULLY. RESTRAINTS IN PLACE. HAS BEEN AT BEDSIDE, RECEIVED UPDATE FROM DR. LAM, AND HAS SINCE LEFT. BED LOW AND LOCKED.
--- NOTE | 2020-02-23 22:12 | NUR ---
UPDATE-AFIB RVR PT'S AFIB, HEART RATE RANGE HAS IMPROVED SLIGHTLY SINCE METOPROLOL WAS GIVEN PER TUBE. RANGE PRIOR TO METOPROLOL WAS 130-150s, OCCASSIONALLY IN THE 160-170 RANGE. SINCE THEN IT HAS BEEN IN THE 120-140s, AND OCCASSIONALLY IN THE 150s. WILL CONTINUE TO MONITOR.
[2020-02-23 23:08] LABS: Hematocrit 44.6 % (33.0-51.0); Hemoglobin 14.1 g/dL (11.5-16.0)
--- NOTE | 2020-02-24 01:09 | NUR ---
UPDATE PT BACK DOWN TO ORIGINAL VENT SETTINGS AC 15/450/5/50%. I HAD CALLED DR. LAM BECAUSE THE PT'S HR RANGE WAS REACHING 150s AGAIN, AND MAINTAINING IN THE 140s. SHE WAS ALSO INCREASINGLY DIAPHORETIC. SHE ORDERED 2.5 MG IV LOPRESSOR NOW. AFTER GIVING THAT DOSE THE PT'S HR IMPROVED AND DECREASED TO THE 120-130s RANGE, CONSISTENTLY FOR THE LAST FEW HOURS. I ALSO MENTIONED TO GENARO THE RIGIDITY IN THE PT'S ABDOMEN, SHE WAS AWARE - AND STATED THAT IS HOW IT HAD BEEN. WE DID ORDER A H&H JUST TO BE SAFE AND RULE OUT A BLEED. THE H&H CAME BACK NORMAL.
--- NOTE | 2020-02-24 02:06 | NUR ---
UPDATE/NEURO/AFIB DURING BED BATH (AROUND 0030), PT'S PROPOFOL WAS PUT ON STANDBY FOR A SHORT PERIOD OF TIME. THE PT STARTED TO OPEN HER EYES AND TRACK THE NURSE, SHE DIDN'T FOLLOW ANY COMMANDS, AND WAS NOT MOVING PURPOSEFULLY. PROPOFOL WAS TURNED BACK ON TO 10 MCG/KG/MIN, ADEQUETLY SEDATING THE PT. SHE OCCASSIONALLY WILL MOVE HER ARMS, NONPURPOSEFULLY. BUT DOES NOT TRACK WITH PUPILS, AND IS NOT RESPONSIVE TO NOXIOUS STIMULI. PT REMAINS IN AFIB, RATE HAS REMAINED IN THE 120-130 RANGE. PT IS LESS DIAPHORETIC, AND HANDS ARE NOW WARM TO TOUCH (STILL DUSKY). 2+ RADIAL PULSE. FEET ARE STILL COOL TO TOUCH, DUSKY, AND WITH 1+ PEDAL PULSES.
[2020-02-24 03:26] LABS: BASOPHILS ABSOLUTE AUTO 0.02 K/mm3 (0.00-0.23); BASOPHILS PERCENT AUTO 0 % (0-2); EOSINOPHILS ABSOLUTE AUTO 0.02 K/mm3 (0.00-0.68); EOSINOPHILS PERCENT AUTO 0 % (0-6); Hematocrit 43.5 % (33.0-51.0); Hemoglobin 14.1 g/dL (11.5-16.0); IMMATURE GRAN PERCENT AUTO 5 % (0-1); LYMPHOCYTES ABSOLUTE AUTO 0.34 K/mm3 (0.84-5.20); LYMPHOCYTES PERCENT AUTO 4 % (21-46); MONOCYTES PERCENT AUTO 9 % (4-13); Mean Corpuscular HGB 30.5 pg (26.0-34.0); Mean Corpuscular HGB Conc 32.4 g/dL (31.5-36.5); Mean Corpuscular Volume 94 fL (80-100); Mean Platelet Volume 10.3 fL (9.1-12.4); NEUTROPHILS ABSOLUTE AUTO 6.37 K/mm3 (1.96-9.15); NEUTROPHILS PERCENT AUTO 81 % (41-73); Platelet Count 76 K/mm3 (150-400); RDW Coefficient Variation 14.8 % (11.7-14.2); RDW Standard Deviation 50.9 fL (35.1-46.3); Red Blood Cell Count 4.62 M/mm3 (3.80-5.20); White Blood Cell Count 7.85 K/mm3 (4.00-11.30)
[2020-02-24 03:42] LABS: BAND PERCENT MAN 4 % (0-8); BASOPHILS PERCENT MAN 0 % (0-2); EOSINOPHILS PERCENT MAN 0 % (0-6); International Normalized Ratio 1.23; LYMPHOCYTES ABSOLUTE MAN 0.23 K/mm3 (0.84-5.20); LYMPHOCYTES PERCENT MAN 3 % (21-46); METAMYELOCYTE ABSOLUTE MAN 0.07 K/mm3 (0.00-0.00); METAMYELOCYTE PERCENT MAN 1 % (0-0); MONOCYTES ABSOLUTE MAN 0.31 K/mm3 (0.16-1.47); MONOCYTES PERCENT MAN 4 % (4-13); NEUTROPHILS ABSOLUTE MAN 7.22 K/mm3 (1.96-9.15); SEG NEUTROPHILS PERCENT MAN 88 % (41-73); TOTAL CELLS COUNTED 100
[2020-02-24 03:43] LABS: Albumin, Blood 3.4 g/dL (3.4-5.0); Anion Gap 8 mmol/L (6-16); Blood Urea Nitrogen 37 mg/dL (8-24); Bun/Creatinine Ratio 35.6 (12.0-20.0); CO2, Blood 21 mmol/L (21-32); Calcium, Blood 8.7 mg/dL (8.5-10.1); Chloride, Blood 114 mmol/L (98-108); Creatinine, Blood 1.04 mg/dL (0.40-1.00); Glomerular Filtration Rate 56 (60-); Glucose, Blood 397 mg/dL (70-99); Magnesium, Blood 2.1 mg/dL (1.6-2.4); Phosphorus, Blood 3.7 mg/dL (2.5-4.9); Potassium, Blood 3.7 mmol/L (3.5-5.5); Sodium, Blood 143 mmol/L (136-145)
--- NOTE | 2020-02-24 06:04 | NUR ---
SHIFT SUMMARY PT REMAINS INTUBATED AC 15/450/5/50%. CURRENT GTTPs: CARDIZEM 15 MG/HR, PROPOFOL 10 MCG/KG/MIN, AMIODARONE 0.5 MG/MIN, AND NS TKO (FOR PB ANTIBIOTICS). STABLE VITALS, AFIB RHYTHM, RATE HAS BEEN 115-130s CONSISTENTLY. INSULIN GTTP IS ORDERED AND NEEDS TO BE STARTED, BUT DUE TO LIMITED ACCESS AND INCOMPATABILITIES OF CERTAIN ANTIBIOTICS AND OTHER MEDS IT IS BEING HELD TILL A PICC LINE CAN BE PLACED ON DAY SHIFT. DR. LAM TOLD ME TO GIVE THE MORNING DOSE OF LANTUS EARLY, AND REORDERED THE Q6H REGULAR INSULIN SLIDING SCALE AND STATED IT WAS OKAY TO HOLD OFF ON THE INSULIN GTTP FOR NOW. NO BM OVERNIGHT. PT IS OLIGURIC, 300 ML OF YELLOW-DENISSE URINE. GENARO AWARE. PT REMAINS COARSE, AND DIMINISHED. SHE IS DIAPHORETIC, AND WARM TO TOUCH, ASIDE HER FEET. SHE REMAINS SLIGHTLY MOTTLED, DUSKY, BUT HAS IMPROVED OVERNIGHT. BED LOW AND LOCKED.
--- NOTE | 2020-02-24 07:27 | NUR ---
REC'D BEDSIDE REPORT FROM JASPER GORE AND WILL NOW ASSUME CARE OF PT. WILL CALL PT'S TO DISCUSS PT'S NEED FOR PICC LINE PLACEMENT, PT HAS MANY IV MEDICATION INCOMPATIBILITIES AND NOW NEEDS INSULIN GTT ADDED TO REGIMEN FOR GLUCOSE MANAGEMENT.
--- NOTE | 2020-02-24 07:34 | NUR ---
CALLED PT'S TO OBTAIN CONSENT FOR PICC LINE PLACEMENT. RAFAEL CONSENTED FOR PLACEMENT AND WAS SECOND VERIFIED BY JASPER MICHEL.
--- NOTE | 2020-02-24 08:12 | NUR ---
PICC LINE PLACED WITHOUT DIFFICULTY IN THE LT UA. PENDING CXR TO CONFIRM LINE PLACEMENT, THEN WILL STARTINSULIN GTT.
--- NOTE | 2020-02-24 08:50 | NUR ---
CXR DONE TO CONFIRM PICC LINE PLACEMENT.
--- NOTE | 2020-02-24 08:55 | NUR ---
PICC LINE CONFIRMED PER DR ROCK.
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
--- NOTE | 2020-02-24 10:30 | NUR ---
DR LAM IN TO THE BEDSIDE. DISCUSS CONTINUED INCREASED GLUCOSE LEVELS AND RECENT LARGE AMT OF EMESIS. WILL CONTINUE TO MANAGE GLUCOSE LEVELS WITH INSULIN GTT AND CHECK CBG'S Q1. WILL D/C RECTAL TUBE, PT HAS NOT HAD ANY BM'S T/O NOCS AND TODAY.
--- NOTE | 2020-02-24 11:00 | NUR ---
CALLED AND SPOKE WITH JENELLE IN PALLATIVE CARE. CONSULT TO BE PLACED. JENELLE RN TO CONTACT WHEN AVAILABLE.
--- NOTE | 2020-02-24 12:20 | NUR ---
CALLED RADIOLOGY RE: ABD XRAY, IT WAS ORDERED AT 1054. GAS VS OBSTRUCTION.
--- NOTE | 2020-02-24 13:40 | NUR ---
CXR BEING DONE TO RECONFIRM ETT AFTER WITHDRAWALING TUBE 1CM AND ABD XRAY DONE TO ASSESS GI R/T CONTINUED EMESIS.
--- NOTE | 2020-02-24 14:02 | NUR ---
Spoke with Bedside RN Gianni and discussed case. Pt re-intubated yesterday after a near code. Pt has been aspirating vomit and appears her condition has declined. Gianni reports Pt's spouse would benefit from conversation from Palliative Care. Spoke with Dr Kennedy and discussed case. Called and spoke with spouse Ruel. Provided update and discussed plan of care. Difficult to engage in therapeutic conversation. Ruel tends to interrupt and discuss issues that Pt has recovered from in the past unrelated to current condition. Discussed Pt's worsening condition with Ruel appearing to have difficulty processing information based off his responses. Continued listeing as Ruel reports suffering from PTSD and his hopeful for Pt's full recovering stating "I don't need to have a heart attack or a stroke". Ruel expresses appreciation of call. Plan is to remain available for therapeutic visits.
--- NOTE | 2020-02-24 14:14 | NUR ---
PT WITH CONTINUED EMESIS, DESPITE STOPPING TUBE FEEDS THIS AM AND BEING PLACED ON LIS WITH APPROX 25OML OF OUTPUT.
--- NOTE | 2020-02-24 16:39 | NUR ---
EKG DONE PT CONVERTED BACK TO SR. EKG SHOWS QT PROLONGATION. SPOKE WITH DR LAM REGARDING THIS. CELESTE/GEO D/C'D.
[2020-02-24 16:49] LABS: Vancomycin, Trough 30.7 ug/mL (5.0-10.0)
--- NOTE | 2020-02-24 17:22 | NUR ---
SHIFT SUMMARY: PT HAS BEEN OFF SEDATION SINCE 1215 TODAY, REMAINS OUT OF RESTRAINTS SINCE THIS TIME. PT DOES NOT ATTEMPT TO PULL AT TUBES AND IS NOT MOVING EXTREMITIES. HOWEVER, PT SLIGHTLY MORE RESPONSIVE ON LAST CHECK SHE WITHDREW FROM NAIL BED PRESSURE, AND LOOKED OVER AT THIS RN WHEN NAME WAS CALLED BUT WAS UNABLE TO FOCUS/TRACK, OR FOLLOW ANY COMMANDS. LUNGS ARE VERY DIMINISHED IN LT LOBES, ESPECIALLY LLL. VENT SETTINGS: AC-15, TV-450, P-5, FI02-75%. 02 REQUIREMENTS STARTED TO INCREASE AFTER PT HAD 2 EPISODES OF LARGE AMT OF EMESIS. PT CONVERTED FROM ATRIAL FIB WITH RVR TO SR-70'S RANGE EARLIER THIS SHIFT. CARDIZEM REMAINS ON STANDBY AT THIS TIME AND AMIODARONE CONTINUED AT 0.5MG/MIN. EKG DONE FOR RHYTHM CHANGE SHOWED QT PROLONGATION-LEVAQUIN/ZYPREXIA D/C'D. PICC LINE PLACED IN THE LT UA BY THIS RN THIS AM AND INSULIN GTT STARTED PER ORDERS. INSULIN GTT CURRENTLY AT 25UNITS PER HOUR. CONTINUE TO CHECK CBG'S Q1H AND TITRATE PRN. ABD LARGE/SEVERELY DISTENDED AND FIRM WITH ACTIVE BT'S X 4QAUDS. NO BM TODAY DESPITE LACTULOSE PT. RECTAL TUBE REMOVED TO MAKE SURE THIS WAS NOT THE REASON FOR NO STOOLING. ABD XRAY DONE, PT'S ABD WITH INCREASING FIRMNESS. XRAY SHOWED LARGES AMTS OF AIR. TUBE FEEDS WERE PLACED ON HOLD AFTER FIRST LARGE EPISODE OF EMESIS, THEN PLACED TO LIS SX AFTER 2ND EPISODE OF EMESIS. PT REMAINS ON LIS AT THIS TIME. MELENDEZ CATH DRAINING SM AMTS OF DARKENING ORANGE COLORED URINE. 200ML OUT THIS SHIFT. PT REMAINS AFEBRILE. BILATERAL HANDS/FT DUSKY IN COLOR AND LE'S FROM KNEE DOWN WITH DISCOLORED SKIN.
--- NOTE | 2020-02-24 19:15 | NUR ---
REPORTED OFF TO JASPER KEYES WHOM ARE ASSUMING CARE OF PT.
--- NOTE | 2020-02-24 23:14 | NUR ---
PT GLUCOSE DECREASED TO 61, NOTIFIED DR. LAM, 1 AMP D50 NGIVEN. ORDERS RECEIVED TO CHECK GLUSCOSE AGAIN IN 1 HOUR. ALSO, PT LIFTING HEAD, GRIMACING, RESTARTED PROPOFOL GTT AT 20 MCG.
[2020-02-25 03:26] LABS: BASOPHILS ABSOLUTE AUTO 0.04 K/mm3 (0.00-0.23); BASOPHILS PERCENT AUTO 0 % (0-2); EOSINOPHILS ABSOLUTE AUTO 0.01 K/mm3 (0.00-0.68); EOSINOPHILS PERCENT AUTO 0 % (0-6); Hematocrit 43.5 % (33.0-51.0); Hemoglobin 13.9 g/dL (11.5-16.0); IMMATURE GRAN ABSOLUTE AUTO 0.14 K/mm3 (0.00-0.10); IMMATURE GRAN PERCENT AUTO 1 % (0-1); LYMPHOCYTES ABSOLUTE AUTO 0.38 K/mm3 (0.84-5.20); LYMPHOCYTES PERCENT AUTO 3 % (21-46); MONOCYTES ABSOLUTE AUTO 1.08 K/mm3 (0.16-1.47); MONOCYTES PERCENT AUTO 8 % (4-13); Mean Corpuscular HGB 30.8 pg (26.0-34.0); Mean Corpuscular Volume 96 fL (80-100); NEUTROPHILS PERCENT AUTO 87 % (41-73); Platelet Count 87 K/mm3 (150-400); RDW Coefficient Variation 15.3 % (11.7-14.2); RDW Standard Deviation 53.4 fL (35.1-46.3); Red Blood Cell Count 4.52 M/mm3 (3.80-5.20); White Blood Cell Count 13.25 K/mm3 (4.00-11.30)
[2020-02-25 03:42] LABS: Alanine Aminotransfer (ALT/SGP 32 U/L (12-78); Albumin, Blood 3.1 g/dL (3.4-5.0); Albumin/Globulin Ratio 0.8 (0.8-1.8); Alk Phos 63 U/L (50-136); Anion Gap 10 mmol/L (6-16); Aspartate Aminotrans (AST/SGOT 64 U/L (12-37); Bilirubin, Total 3.2 mg/dL (0.1-1.0); Blood Urea Nitrogen 53 mg/dL (8-24); Bun/Creatinine Ratio 27.3 (12.0-20.0); CO2, Blood 20 mmol/L (21-32); Calcium, Blood 8.8 mg/dL (8.5-10.1); Chloride, Blood 117 mmol/L (98-108); Creatinine, Blood 1.94 mg/dL (0.40-1.00); Globulin, Blood 3.9 g/dL (2.2-4.0); Glomerular Filtration Rate 27 (60-); Glucose, Blood 118 mg/dL (70-99); Phosphorus, Blood 4.1 mg/dL (2.5-4.9); Potassium, Blood 3.7 mmol/L (3.5-5.5); Sodium, Blood 147 mmol/L (136-145); Vancomycin, Random 28.5 ug/mL
--- NOTE | 2020-02-25 05:25 | NUR ---
SHIFT SUMMARY PT REMAINS UNRESPONSIVE TO TACTILE STIUMLATION OR PAIN. PUPILS SLUGGISH TO RESPONSE. PT EYE OPENING SPONTANEOUS BUT NOT TRACKING. PT TO VENT AC 15, FIO2 75%,PEEP 5. NOW OFF AMIODARONE AND CARDIZEM. NGT TO LOW INTERMITTENT SUCTION WITH 50CC BILEM COLORED FLUID THIS SHIFT. LUNG SOUNDS CLEAR BUT DIMINISHED IN BASES. ABD DISTENDED AND FIRM, NO BOWEL TONES AUSCULTATED. NO BM THIS SHIFT. EXTREMETIES APPEAR MOTTLED BUT ARE WARM WITH STRONG PULSES. INSULIN GTT OFF WITH PT MAINTAINING GLUCOSE IN 100-120 RANGE. PROPOFOL WAS STOPPED AT 2000 WITH FENTANYL GIVEN FOR PT GRIMACING. PROPOFOL RESTARTED AT 2300 DO TO PT RAISING HEAD OFF PILLOW AND GRIMACING. PT APPEARS MORE COMFORTABLE WITH SEDATION.
--- NOTE | 2020-02-25 06:15 | NUR ---
PT HAD A 22 SECOND RUN OF SVT, NOTIFIED DR LAM, CARDIZEM GTT RESTARTED AT 5MG/HR. PT TO RECEIVE 20 MEQ OF POTASSIUM CHLORIDE.
--- NOTE | 2020-02-25 07:35 | NUR ---
ASSUMED CARE THIS AM PT REMAINS SEDATED AND INTUBATED THIS AM. VENT SETTINGS OF AC 15,450, PEEP5, 75%. PT. PUPILS ARE SLUGGISH BUT EQUAL AND REACTIVE TO LIGHT. PT. DOES NOT AROUSE TO PAINFUL STIMULI. COUGH NOTED WITH DEEP SUCTION OF ETT. PROPOFOL GTT CURRENTLY INFUSING AT 20MCG/KG/MIN. PLACED ON STAND BY AT THIS TIME FOR SEDATION VACATION AND TO BETTER ASSESS NEURO STATUS. PT. PLACED IN BILAT WRIST RESTRAINTS FOR SAFETY DURING SEDATION VACATION, ALTHOUGH NO SPONT MOVEMENT NOTED AT THIS TIME. OG REMAINS TO LIS WITH BILE NOTED IN OG TUBE. CARDIZEM GTT RESTARTED THIS AM PER ORDER, INFUSING AT 5MG/HR. VSS AT THIS TIME. PT REMAINS AFEBRILE. MELENDEZ TEMP PROBE IN PLACE DRAINING TO GRAVITY.
--- NOTE | 2020-02-25 08:24 | NUR ---
RESIDENT DR. MCCORMICK AT BEDSIDE TO EVAL, SEDATION REMAINS OFF, PT NOW OPENS EYES TO VERBAL STIMULI HOWEVER DOES NOT FOLLOW COMMANDS AT THIS TIME. REPOSITIONED IN BED VIA CELEING LIFT, VSS AT THIS TIME. PROPOFOL TO REMAIN ON STAND BY AT THIS TIME.
--- NOTE | 2020-02-25 10:39 | NUR ---
DR. VENTURA AT BEDSIDE TO ASSESS PT. RR INCREASING, REMAINS OFF OF SEDATION. SUPPORT ON VENT CHANGED BY DR. VENTURA PEEP INCREASED TO 10, FIO2 80%. PT. OPENS EYES TO VERBAL STIMULATION, NOT TRACKING, NOT FOLLOWING COMMANDS. NO SPONT MOVEMENT TO EXTREM. PT. DOES HAVE STRONG GRIMACE WITH ABD. PALPATION. PROPOFOL RESTARTED AT 10MCG/KG/MIN AT THIS TIME FOR COMFORT.
--- NOTE | 2020-02-25 12:20 | NUR ---
PT IN TO VISIT PT. PT. TOOK PT PURSE, AND SPECIMEN CONTAINER WITH JEWELRY IN IT HOME. HE LEFT HER DENTURES AND NIGHTGOWN HERE BUT TOOK THE REMAINDER OF PERSONAL ITEMS HOME. PT UPDATED ON CONDITION.
--- NOTE | 2020-02-25 13:16 | NUR ---
PT BP CONTINUES TO TREND DOWN. ORDER FROM NEOSYNEPHRINE OBTAINED, TO BE TITRATED PER DR. CHÁVEZ.
--- NOTE | 2020-02-25 14:27 | NUR ---
NEW SPUTUM SAMPLE OBTAINED AND SENT TO LAB FOR PROCESSESSING. NEOSYNEPHRINE INFUSING AT 50MCG/MIN WITH IMPROVEMENTS NOTED TO BP, SEE VS FLOW SHEET FOR TRENDS.
--- NOTE | 2020-02-25 15:56 | NUR ---
PT CONTINUES TO HAVE VERY MINIMAL URINE OUTPUT, MELENDEZ IRRIGATED WITH 30CC STERILE WATER, WITH NO IMPROVEMENT IN URINE OUTPUT. DR. LORENZO RODRÍGUEZ.
--- NOTE | 2020-02-25 16:56 | NUR ---
Spiritual care note: I met with spouse, Ruel, at bedside. He remains optimistic that pt will recover. I suspect he lavell remain hopeful regardless. I recommend staff stop trying to get him to change code status for awhile. Ruel has not been well himself, recently battling bladder cancer. He seems tired and frail. I encouraged self-care and rest. Assured Ruel of excellent care and attention to Sussy by nursing. I will remain available.
--- NOTE | 2020-02-25 17:09 | NUR ---
TEMP NOTED TO BE INCREASING TO 99.0, PT FLUSHED AND WARM TO TOUCH. FAN PLACED AT BEDSIDE.
--- NOTE | 2020-02-25 17:13 | NUR ---
SHIFT SUMMARY PT. REMAINS SEDATED AND INTUBATED. NEW SPUTUM SAMPLE SENT THIS SHIFT. OXYGENATION NEEDS INCREASED THIS SHIFT ALONG WITH BLOOD PRESSURE SUPPPORT. PT. CURRENTLY ON NEOSYNEPHRINE AT 100MCG/MIN. PT HAD 20CC OF URINE OUTPUT THIS SHIFT, IRRIGATED ONCE, MELENDEZ REMAINS PATENT AND DRAINING TO GRAVITY. NO BM THIS SHIFT. PT. REMAINS WITH OG TO LIS, AND NO TUBE FEEDING AT THIS TIME. REPORT TO ONCOMING RN.
--- NOTE | 2020-02-25 19:30 | NUR ---
ASSUMED PT CARE, PT NONRESPONSIVE TO TACTILE OR VERBAL STIMULI. ET TUBE TO VENT AC 15, FIO2 80%, PEEP 10. PT APPEARS COMFORTABLE.
--- NOTE | 2020-02-25 22:00 | NUR ---
PT'S MAP DECREASED TO BELOW [address] VENTURA, RECEIVED ORDER TO GIVE 1 LITER BOULS LR AND START LEVOPHED IF INEFFECTIVE.
[2020-02-26 05:13] LABS: Alanine Aminotransfer (ALT/SGP 163 U/L (12-78); Albumin, Blood 2.9 g/dL (3.4-5.0); Albumin/Globulin Ratio 0.7 (0.8-1.8); Alk Phos 87 U/L (50-136); Anion Gap 16 mmol/L (6-16); Aspartate Aminotrans (AST/SGOT 506 U/L (12-37); Bilirubin, Total 3.1 mg/dL (0.1-1.0); Blood Urea Nitrogen 62 mg/dL (8-24); Bun/Creatinine Ratio 21.6 (12.0-20.0); CO2, Blood 13 mmol/L (21-32); Calcium, Blood 7.9 mg/dL (8.5-10.1); Chloride, Blood 116 mmol/L (98-108); Creatinine, Blood 2.87 mg/dL (0.40-1.00); Globulin, Blood 4.1 g/dL (2.2-4.0); Glomerular Filtration Rate 16 (60-); Glucose, Blood 139 mg/dL (70-99); Magnesium, Blood 2.1 mg/dL (1.6-2.4); Potassium, Blood 5.6 mmol/L (3.5-5.5); Sodium, Blood 145 mmol/L (136-145); Vancomycin, Random 23.5 ug/mL
[2020-02-26 05:30] LABS: PCO2 Arterial 35.7 mmHg (35-45); PO2 Arterial 76.3 mmHg (80-100); pH Blood Arterial 7.08 (7.35-7.45)
[2020-02-26 05:44] LABS: International Normalized Ratio 1.78; Prothrombin Time Results 18.4 Sec (9.7-11.5)
[2020-02-26 06:12] LABS: PCO2 Arterial 34.8 mmHg (35-45); PO2 Arterial 75.1 mmHg (80-100); pH Blood Arterial 7.06 (7.35-7.45)
[2020-02-26 06:30] LABS: Phosphorus, Blood 7.9 mg/dL (2.5-4.9)
[2020-02-26 06:32] LABS: Troponin I 0.135 ng/mL (0.000-0.040)
--- NOTE | 2020-02-26 07:32 | NUR ---
PT CONTINUES TO BE INTUBATED, VENT SETTINGS AC 15/450/10/100%. PT REQUIRING INCREASING AMOUNT OF PRESSORS. NEOSYNEPHRINE @300 MCG/MIN, LEVOPHED @ 10 MCG/MIN, VASOPRESSIN @0.04 UNITS/MIN. D5 BICARB @ 150 ML/HR. PROPOFOL 10 MCG/MIN. DR. VENTURA NOTIFIED THAT PT SATS IN LOW 80'S DESPITE INCREASE IN FI02 AND PRESSORS INFUSING AT MAX RATE. 0400 DR. VENTURA AT BEDSIDE TO INSERT RIGHT FEMORAL ART LINE. PT'S CALLED AND REQUESTED TO COME TO HOSPITAL TO SPEAK WITH MANAGER GROUP. 0500 COMPLAINS OF CHEST PAIN, REPORTS HISTORY OF "[place]" BUT STATES HE HASN'T HAD CHEST PAIN IN "2-3 WEEKS", TOOK 1 OF HIS OWN NITRO PILLS. ENCOURAGED TO GO TO ER TO BE ASSESSED, AGREES AND WAS TRANSPORTED VIA WHEELCHAIR TO ED ADMITTING. PT REMAINS UNRESPONSIVE DISPLAYING "GUPPY BREATHING" THAT BECOMES MORE APPARENT WHEN SEDATION REDUCED. BILATERAL SOFT WRIST RESTRAINTS REMOVED @0200, PT MAKES NO ATTEMPT TO MOVE/DISLODGE TUBING, NO PURPOSEFUL MOVEMENT NOTED. EXTREMETIES COOL TO THE TOUCH WITH INCREASED MOTTLING. RADIAL AND PEDAL PULSES DIFFICULT TO PALPATE. PLEASE SEE FLOWSHEET AND PREVIOUS NOTES FROM THIS SHIFT.
[2020-02-26 10:31] LABS: Bun/Creatinine Ratio 21.6 (12.0-20.0); Calcium, Blood 8.1 mg/dL (8.5-10.1); Creatinine, Blood 2.92 mg/dL (0.40-1.00); Potassium, Blood 5.4 mmol/L (3.5-5.5)
--- NOTE | 2020-02-26 10:38 | NUR ---
AM NOTE... ASSUMED CARE OF PT APROX 0700, PT IS INTUBATED AND SEDATED PROP RUNNING AT 10MCG/KG/MIN. PT IS CURRENTLY ON NEOSENEPHERINE AT 250MCG/MIN, LEVOPHED AT 10MCG/MIN AND VASOPRESSIN AT 0.04MCG/MIN, PT'S BP AND HR STABLE AT THIS TIME WITH MAPS>65. PT IS IN NSR IN THE 60'S-70'S. PT HAS 2+ EDEMA TO HER BLE AND HANDS. PT'S HANDS AND BLE ARE PURPLE, COOL AND CLAMMY BLE HAS GOOD CAP REFILL AT LESS THAN 3 SECONDS. DOPPLER WAS USED TO FINE THE BLE PULSES. L/S COARSE RHONCHI HEARD T/O, PT IS ON VENT WITH SETTINGS AC: 15/450/100%/PEEP10 WITH O2 SATS>89%. BT VERY HYPOACTIVE, ABD HAS SEVERE DISTENTION AND IS VERY FIRM TO PALP. NO BM CHARTED SINCE 02/22, OG TUBE PATENT AND SET TO LOW INT SUCTION DARK GREEN BILE IS NOTED IN THE TUBING. MELENDEZ IS PATENT, PT CURRENTLY HAS VERY MINIMAL URINE OUTPUT AT THIS TIME, NO URINE OUTPUT WAS NOTED FOR NOC SHIFT. DR. MEJIAS AT THE BEDSIDE DURING ECHO THIS AM. SHE WAS UPDATED BY DR. VENTURA ON PLAN OF CARE. PT'S DAUGHTER WAS UPATED THIS AM, SHE LIVES IN [place] AND IS PLANNING ON COMING UP. PT'S IS CURRENTLY IN THE ER WITH SEVERE CHEST PAIN AND MAY BE ADMITTED WELL. WILL CONTINUE TO MONITOR.
[2020-02-26 10:54] LABS: BASOPHILS ABSOLUTE AUTO 0.16 K/mm3 (0.00-0.23); BASOPHILS PERCENT AUTO 1 % (0-2); EOSINOPHILS ABSOLUTE AUTO 0.01 K/mm3 (0.00-0.68); EOSINOPHILS PERCENT AUTO 0 % (0-6); Hematocrit 46.6 % (33.0-51.0); Hemoglobin 13.8 g/dL (11.5-16.0); IMMATURE GRAN PERCENT AUTO 3 % (0-1); LYMPHOCYTES ABSOLUTE AUTO 0.66 K/mm3 (0.84-5.20); LYMPHOCYTES PERCENT AUTO 3 % (21-46); MONOCYTES ABSOLUTE AUTO 1.55 K/mm3 (0.16-1.47); MONOCYTES PERCENT AUTO 7 % (4-13); Mean Corpuscular HGB 30.7 pg (26.0-34.0); Mean Corpuscular HGB Conc 29.6 g/dL (31.5-36.5); Mean Platelet Volume 11.6 fL (9.1-12.4); NEUTROPHILS ABSOLUTE AUTO 19.77 K/mm3 (1.96-9.15); NEUTROPHILS PERCENT AUTO 87 % (41-73); NRBC ABSOLUTE 0.36 K/mm3 (0.00-0.02); NRBC Auto 1.6 /100 WBC (0.0-0.2); Platelet Count 100 K/mm3 (150-400); RDW Coefficient Variation 16.5 % (11.7-14.2); RDW Standard Deviation 63.2 fL (35.1-46.3); Red Blood Cell Count 4.49 M/mm3 (3.80-5.20); White Blood Cell Count 22.85 K/mm3 (4.00-11.30)
[2020-02-26 10:55] LABS: Mean Corpuscular Volume 104 fL (80-100)
[2020-02-26 15:48] LABS: Hematocrit 45.3 % (33.0-51.0); Hemoglobin 13.6 g/dL (11.5-16.0)
--- NOTE | 2020-02-26 15:52 | NUR ---
PT UPDATE... PT'S WAS ADMITTED TO THE MEDICAL FLOOR, HER SOLIS BRYANT ASKED HIS NURSE TO CONTACT THIS RN ON HIS BEHALF ASKING THAT WE NOTIFY HIM IF ANY NEGATIVE CHANGES OCCUR. SPOKE WITH PALLIATIVE CARE AND SPIRITUAL CARE ABOUT THE PT'S AND HER 'S SITUATION. WILL CONTINUE TO MONITOR.
[2020-02-26 16:16] LABS: Bun/Creatinine Ratio 20.3 (12.0-20.0); Creatinine, Blood 3.05 mg/dL (0.40-1.00); Magnesium, Blood 2.2 mg/dL (1.6-2.4); Potassium, Blood 5.4 mmol/L (3.5-5.5)
[2020-02-26 16:20] LABS: Phosphorus, Blood 8.5 mg/dL (2.5-4.9)
--- NOTE | 2020-02-26 17:48 | NUR ---
SHIFT SUMMARY... PT CONTINUES TO BE ON LEVOPHED AT 10MCG, NEOSENEPHRINE DOUBLE STRENGTH AT 125MCG, VASOPRESSIN AT 0.04. PT'S BP HAS BEEN STABLE WITH MAPS >60. PT CONTINUES TO BE ON THE VENT AT AC: 15, 450, 100% PEEP OF 10. PT WAS ABLE TO BE TITRATED DOWN TO 90% FOR APROX 1 HOUR BUT THEN NEEDED TO BE INCREASED BACK TO 10% FIO2. PT HAD LARGE ORANGE/BROWN WATERY STOOL, RECTAL TUBE WAS PLACED D/T EVERY TIME THE STAFF TURNED THE PT TO PROVIDE CARE PT'S SATS WOULD DROP TO LOW 80'S. ART LINE SITE IS C/D/I, GOOD WAVEFORM IS PRESENT. PT HAS BEEN AFEBRILE T/O SHIFT. PT'S MELENDEZ PATENT AND DRAINING ONLY 5MLS THIS SHIFT. PT'S DAUGHTER ARRIVED AND WAS UPDATED ON PT'S CONDITION. WILL CONTINUE TO MONITOR UNTIL REPORT IS GIVEN TO ONCOMING RN.
--- NOTE | 2020-02-26 18:20 | NUR ---
PT UPDATE... PT'S O2 SATS CONTINUE TO BE 85-89% DR. VENTURA CALLED, NEW ORDER TO INCREASE PEEP FROM 10 TO 12 OBTAINED. RT NOTIFIED,.
--- NOTE | 2020-02-26 18:28 | NUR ---
Spiritual care note: Provided prayer at bedside for pt. Later in the day, I met dtr in pt's spouse's room 335. He has been admitted for anxiety. Dtr did not appear to be aware of her mom's dire prognosis. Offered prayer and encouragement. Dtr verbalized appreciation for spiritual support to her parents. I met with Ruel this morning while he was in ED. He wavers between comprehension that Ashleigh is nearing end-of-life and denial. I am begining to suspect he cannot bear the idea of seeing her decline. Ruel retold me stories from the war and tidbits from their marriage. "I have to take her to the ocean when she gets better. She loves the ocean." He is appreciative of prayer/spiritual encouragement. Ashleigh looks much worse than yesterday. She is completely non-responsive and seems to be motteling in extremities. Ruel has been told she could pass at any time. I will remain available.
--- NOTE | 2020-02-26 19:15 | NUR ---
ASSUMED PT CARE. PT REMAINS UNRESPONSIVE TO VERBAL OR TACTILE STIMULI. ET TO VENT, AC 15, TV 450, FIO2 100%, PEEP 10. LUNG SOUNDS UNCHANGED, RHONCHI THROUGHOUT VERY DIMINISHED IN BASES. ABD FIRM AND DISTENDED. MELENDEZ CATH INTACT. RECTAL TUBE INTACT WITH SMALL AMOUNT OF LIQUID DARK STOOL IN TUBING. ART LINE INTACT. ART LINE ZEROED. LOWER EXTREMETIES REMAIN MOTTLED COLD TO TOUCH WITH WEAK PULSES. HANDS APPEAR MOTTLED WELL.
--- NOTE | 2020-02-26 22:40 | NUR ---
PT SPO2 DECREASED TO 50-60% AND LABILE BACK UP TO LOW 80'S. NOTIFIED OF COLOR CHANGE OF TONGUE TO PURPLE COLOR. NOTIFIED DR. VENTURA. ORDER RECEIVED TO INFUSE 1 LITER LR. CHANGE PEEP TO 12-15. CALL FOR FURTHER ORDERS NEEDED.
--- NOTE | 2020-02-26 23:10 | NUR ---
PT SPO2 REMAINS 50'S TO 80'S, RESPIRATORY ADJUST PEEP TO 12 AND ALSO 15. SPO2 UNCHANGED. PEEP BACK TO 10.
--- NOTE | 2020-02-27 02:55 | NUR ---
PT HAS HIGH RESP 38-40, FACIAL GRIMACING. MEDICATED PT WITH FENTANYL PER ORDER
[2020-02-27 03:23] LABS: PCO2 Arterial 30.7 mmHg (35-45); PO2 Arterial 70.5 mmHg (80-100)
[2020-02-27 03:35] LABS: EOSINOPHILS ABSOLUTE AUTO 0.02 K/mm3 (0.00-0.68); EOSINOPHILS PERCENT AUTO 0 % (0-6); Hematocrit 42.9 % (33.0-51.0); Hemoglobin 12.4 g/dL (11.5-16.0); IMMATURE GRAN ABSOLUTE AUTO 1.34 K/mm3 (0.00-0.10); IMMATURE GRAN PERCENT AUTO 6 % (0-1); LYMPHOCYTES PERCENT AUTO 4 % (21-46); MONOCYTES ABSOLUTE AUTO 1.35 K/mm3 (0.16-1.47); MONOCYTES PERCENT AUTO 6 % (4-13); Mean Corpuscular HGB 31.1 pg (26.0-34.0); Mean Corpuscular HGB Conc 28.9 g/dL (31.5-36.5); Mean Corpuscular Volume 108 fL (80-100); Mean Platelet Volume 11.1 fL (9.1-12.4); NEUTROPHILS ABSOLUTE AUTO 20.62 K/mm3 (1.96-9.15); NEUTROPHILS PERCENT AUTO 85 % (41-73); NRBC ABSOLUTE 0.77 K/mm3 (0.00-0.02); NRBC Auto 3.2 /100 WBC (0.0-0.2); Platelet Count 62 K/mm3 (150-400); RDW Standard Deviation 66.9 fL (35.1-46.3); Red Blood Cell Count 3.99 M/mm3 (3.80-5.20); White Blood Cell Count 24.25 K/mm3 (4.00-11.30)
[2020-02-27 03:40] LABS: BASOPHILS ABSOLUTE AUTO 0.02 K/mm3 (0.00-0.23); BASOPHILS PERCENT AUTO 0 % (0-2)
[2020-02-27 04:02] LABS: BAND PERCENT MAN 4 % (0-8); BASOPHILS PERCENT MAN 0 % (0-2); EOSINOPHILS PERCENT MAN 0 % (0-6); METAMYELOCYTE ABSOLUTE MAN 0.72 K/mm3 (0.00-0.00); METAMYELOCYTE PERCENT MAN 3 % (0-0); MONOCYTES ABSOLUTE MAN 0.97 K/mm3 (0.16-1.47); MONOCYTES PERCENT MAN 4 % (4-13); MYELOCYTE ABSOLUTE MAN 0.24 K/mm3 (0.00-0.00); MYELOCYTE PERCENT MAN 1 % (0-0); NEUTROPHILS ABSOLUTE MAN 22.31 K/mm3 (1.96-9.15); SEG NEUTROPHILS PERCENT MAN 88 % (41-73); TOTAL CELLS COUNTED 100
[2020-02-27 04:05] LABS: Magnesium, Blood 2.2 mg/dL (1.6-2.4)
[2020-02-27 04:28] LABS: Alanine Aminotransfer (ALT/SGP 1478 U/L (12-78); Albumin, Blood 2.4 g/dL (3.4-5.0); Albumin/Globulin Ratio 0.7 (0.8-1.8); Alk Phos 191 U/L (50-136); Anion Gap 24 mmol/L (6-16); Aspartate Aminotrans (AST/SGOT 6506 U/L (12-37); Bilirubin, Total 4.5 mg/dL (0.1-1.0); Blood Urea Nitrogen 63 mg/dL (8-24); Bun/Creatinine Ratio 19.3 (12.0-20.0); CO2, Blood 7 mmol/L (21-32); Calcium, Blood 7.9 mg/dL (8.5-10.1); Chloride, Blood 111 mmol/L (98-108); Creatinine, Blood 3.26 mg/dL (0.40-1.00); Globulin, Blood 3.3 g/dL (2.2-4.0); Glomerular Filtration Rate 15 (60-); Glucose, Blood 186 mg/dL (70-99); Potassium, Blood 5.9 mmol/L (3.5-5.5); Sodium, Blood 142 mmol/L (136-145); Total Protein, Blood 5.7 g/dL (6.4-8.2); Vancomycin, Random 18.9 ug/mL
[2020-02-27 04:32] LABS: International Normalized Ratio 4.72; Prothrombin Time Results 46.3 Sec (9.7-11.5)
[2020-02-27 04:42] LABS: Phosphorus, Blood 9.9 mg/dL (2.5-4.9)
[2020-02-27 06:22] LABS: Albumin, Blood 2.2 g/dL (3.4-5.0); Albumin/Globulin Ratio 0.7 (0.8-1.8); Bilirubin, Total 4.4 mg/dL (0.1-1.0); Bun/Creatinine Ratio 18.3 (12.0-20.0); Calcium, Blood 7.7 mg/dL (8.5-10.1); Creatinine, Blood 3.44 mg/dL (0.40-1.00); Globulin, Blood 3.3 g/dL (2.2-4.0); Total Protein, Blood 5.5 g/dL (6.4-8.2)
[2020-02-27 06:25] LABS: Potassium, Blood 6.5 mmol/L (3.5-5.5)
--- NOTE | 2020-02-27 06:35 | NUR ---
0521 PT BRADYCARDIC, NO PULSE, INITIATED CHEST COMPRESSIONS, CODE BLUE CALLED. ONE AMP EPINEPHRINE GIVEN. ER PHYSICIAN DR. GUERRIER TO BEDSIDE. 2 AMPS OF EPI GIVEN 8 MINUTES CPR, PT BACK TO AFIB WITH PULSE. CONTINUED NEOSYNEPHRINE GTT, VASOPRESSIN, BICARB. 0547 PT IN ASYSTOLE NO PULSE, CHEST COMPRESSIONS INITIATED, CODE BLUE CALLED. DR. PICHARDO AT BEDSIDE. 1 AMP EPINEPHRINE GIVEN 13 MINUTES CPR. PT THEN TO BEDSIDE. DR. PICHARDO EXPLAINED SITUATION TO PT'S . PT'S MR. BRYANT STATED TO DR. PICHARDO TO DISCONTINUE CPR. TIME OF 0555. EMBEDDED ENGINEERYADIRA ALVAREZ TO HUSBANDS ROOM FOR COMFORT WITH PT'S BELONGINS. 0640 DAUGHTER AT BEDSIDE. PLEASE SEE CODE BLUE SHEET FOR FURTHER INFO.
--- NOTE | 2020-02-27 06:53 | NUR ---
Call back ORLY - Spoke with JASPER Fischer who updated this newspaper writer on pt's demise. RN directs this person to spouse's room who is also in hospital receiving care. See Ruel Finnegan note for PC note.
== END 2020-02-27 05:55 | DRG 871 ==
LOC: ER 12:04 → ICUW 16:37
PROVIDERS: Emergency Medicine; Hospitalist; Internal Medicine; Internal Medicine Critical Care Medicine; Pharmacist; ADMIT Hospitalist
PROC: 0BH17EZ Insertion of Endotracheal Airway into Trachea, Via Natural or Artificial Opening (ICD-10-PCS; principal; 2020-02-18)
PROC: 5A1945Z Respiratory Ventilation, 24-96 Consecutive Hours (ICD-10-PCS; 2020-02-18)
PROC: 0BH17EZ Insertion of Endotracheal Airway into Trachea, Via Natural or Artificial Opening (ICD-10-PCS; 2020-02-23)
PROC: 5A1945Z Respiratory Ventilation, 24-96 Consecutive Hours (ICD-10-PCS; 2020-02-23)
PROC: 04HY32Z Insertion of Monitoring Device into Lower Artery, Percutaneous Approach (ICD-10-PCS; 2020-02-26)
DX: A40.1 Sepsis due to streptococcus, group B (principal); G92 Toxic encephalopathy; I33.0 Acute and subacute infective endocarditis; J18.9 Pneumonia, unspecified organism; J69.0 Pneumonitis due to inhalation of food and vomit; R65.21 Severe sepsis with septic shock; J96.01 Acute respiratory failure with hypoxia; N17.0 Acute kidney failure with tubular necrosis; E87.2 Acidosis; I42.1 Obstructive hypertrophic cardiomyopathy; I42.8 Other cardiomyopathies; J44.0 Chronic obstructive pulmonary disease with (acute) lower respiratory infection; K56.7 Ileus, unspecified; Z68.41 Body mass index [BMI] 40.0-44.9, adult; N39.0 Urinary tract infection, site not specified; Z20.828 Contact with and (suspected) exposure to other viral communicable diseases; Z51.5 Encounter for palliative care; B18.2 Chronic viral hepatitis C; D69.6 Thrombocytopenia, unspecified; E11.65 Type 2 diabetes mellitus with hyperglycemia; E66.01 Morbid (severe) obesity due to excess calories; E78.5 Hyperlipidemia, unspecified; E80.6 Other disorders of bilirubin metabolism; E87.5 Hyperkalemia; E87.6 Hypokalemia; I07.1 Rheumatic tricuspid insufficiency; I10 Essential (primary) hypertension; I27.20 Pulmonary hypertension, unspecified; I48.91 Unspecified atrial fibrillation; R65.20 Severe sepsis without septic shock; Z79.4 Long term (current) use of insulin; Z87.891 Personal history of nicotine dependence; I46.9 Cardiac arrest, cause unspecified; K74.60 Unspecified cirrhosis of liver
CPT/HCPCS: 0202U; 31500; 31720; 36415; 36569; 36600; 36620; 51702; 70450; 71045; 71260; 74018; 74177; 76770; 80048; 80053; 80069; 80076; 80202; 81001; 82140; 82330; 82533; 82550; 82553; 82803; 82947; 83605; 83690; 83735; 83880; 84100; 84132; 84145; 84439; 84443; 84484; 85014; 85018; 85025; 85610; 87040; 87070; 87086; 87205; 92610; 92950; 93005; 93010; 93306; 93970; 94002; 94003; 94660; 94770; 96365-59; 96366-59; 96368; 96372-59; 96375-59; 99285-25; A9270-GY; C1751; C9113; G0480; J0282; J0290; J0330; J0456; J0696; J1160; J1630; J1650; J1815; J1940; J1956; J2060; J2185; J2250; J2370; J2704; J3010; J3370; J3475; J3480; J7030; J7040; J7050; J7060; J7070; J7120; P9046; Q9967